=== PATIENT | male | born 1955 | race Caucasian/White ===

== ENCOUNTER 2018-02-02 03:35 | Inpatient (IN) | payer MEDICARE ==
[2018-02-02] MEDS ORDERED: SODIUM CHLORIDE 0.9% 1,000 ML IV STA ×2 (05:50)
[2018-02-02] MEDS ORDERED: VANCOMYCIN IV PER PHARMACY 1 EACH MISC MISCELLANE PRN (05:50)
[2018-02-02] MEDS ORDERED: AMPICILLIN-SULBACTAM 3 GM in SODIUM CHLORIDE 0.9% 100 ML IVPB STA (05:50)
[2018-02-02] MEDS ORDERED: MORPHINE SULFATE 4 MG/ML SYRINGE IV STA (05:50)
[2018-02-02] MEDS ORDERED: RX INFO: IV CONTRAST WAS GIVEN 1 EACH MISC MISCELLANE PRN (05:50)
--- NOTE | 2018-02-02 05:53 | ED ---
General Adult HPI - General Chief complaint: Skin/Abscess/Foreign Body Stated complaint: Cyst Time Seen by Provider: 02/02/18 04:07 Source: patient, RN notes reviewed, old records reviewed Mode of arrival: ambulatory Limitations: no limitations - History of Present Illness Initial comments: This is a 60-year-old male to the ER for evaluation of right buttock pain. Severe right buttock pain, history of diabetes. Patient states symptoms 2 days with no significant drainage. He has had episodic fevers and chills. - Related Data Home Medications Medication Instructions Recorded Confirmed Levothyroxine Sodium [Synthroid] 200 mcg PO DAILY 11/29/14 02/02/18 metFORMIN HCL [Glucophage] 500 mg PO BID 02/02/18 02/02/18 Previous Rx's Medication Instructions Recorded Simvastatin [Zocor] 40 mg PO HS #30 tab 11/30/14 Allergies Allergy/AdvReac Type Severity Reaction Status Date / Time No Known Allergies Allergy Verified 11/29/14 01:50 Review of Systems ROS Statement: Those systems with pertinent positive or pertinent negative responses have been documented in the HPI. ROS Other: All systems not noted in ROS Statement are negative. Past Medical History Past Medical History: Diabetes Mellitus, Thyroid Disorder History of Any Multi-Drug Resistant Organisms: MRSA Date of last positivie culture/infection: 07/18/16 MDRO Source:: ABDOMEN Past Surgical History: Appendectomy, Tonsillectomy Additional Past Surgical History / Comment(s): Thyroidectomy Past Anesthesia/Blood Transfusion Reactions: No Reported Reaction Past Psychological History: No Psychological Hx Reported Smoking Status: Current every day smoker Past Alcohol Use History: Rare Past Drug Use History: None Reported General Exam Limitations: no limitations General appearance: alert, in no apparent distress Head exam: Present: atraumatic, normocephalic, normal inspection Eye exam: Present: normal appearance, PERRL, EOMI. Absent: scleral icterus, conjunctival injection, periorbital swelling ENT exam: Present: normal exam, mucous membranes moist Neck exam: Present: normal inspection. Absent: tenderness, meningismus, lymphadenopathy Respiratory exam: Present: normal lung sounds bilaterally. Absent: respiratory distress, wheezes, rales, rhonchi, stridor Cardiovascular Exam: Present: normal rhythm, tachycardia, normal heart sounds. Absent: systolic murmur, diastolic murmur, rubs, gallop, clicks GI/Abdominal exam: Present: soft, normal bowel sounds. Absent: distended, tenderness, guarding, rebound, rigid Rectal exam: Present: tenderness, other (Significant right buttocks induration, erythema and edema, extending towards perineal area) Extremities exam: Present: normal inspection, full ROM, normal capillary refill. Absent: tenderness, pedal edema, joint swelling, calf tenderness Back exam: Present: normal inspection Neurological exam: Present: alert, oriented X3, CN II-XII intact Psychiatric exam: Present: normal affect, normal mood Skin exam: Present: warm, dry, intact, normal color. Absent: rash Course Vital Signs 02/02/18 03:45 Temperature 97.0 F L Pulse Rate 112 H Respiratory 20 Rate Blood Pressure 129/73 O2 Sat by Pulse 98 Oximetry - Reevaluation(s) Reevaluation #1: 02/02/18 06:23 patient does have adequate pain control at this time, Medical Decision Making - Medical Decision Making 62 male the ER was significant right buttocks abscess, will admit for control of diabetes, IV antibiotics and surgery consultation - Radiology Data Radiology results: report reviewed (CT abdomen and pelvis), image reviewed Disposition Clinical Impression: Abscess of right buttock, Cellulitis of right buttock, Diabetes Disposition: ADMITTED IP TO THIS [facility] Condition: Good
[2018-02-02 06:51] LABS: Basophils % (A) 0 %; Eosinophils # (A) 0.1 k/uL (0-0.7); Eosinophils % (A) 1 %; HCT 39.5 % (39.0-53.0); HGB 13.4 gm/dL (13.0-17.5); Lymphocytes # (A) 2.1 k/uL (1.0-4.8); Lymphocytes % (A) 14 %; MCH 31.8 pg (25.0-35.0); MCV 93.5 fL (80.0-100.0); Mean Platelet Volume 7.9; Monocytes % (A) 6 %; Neutrophils # (A) 12.2 k/uL (1.3-7.7); Neutrophils % (A) 78 %; Platelet Count 212 k/uL (150-450); RBC 4.22 m/uL (4.30-5.90); RDW 12.3 % (11.5-15.5); WBC 15.6 k/uL (3.8-10.6)
[2018-02-02 06:57] LABS: Glucose,Whole Blood 232 mg/dL (75-99)
[2018-02-02] MEDS ORDERED: VANCOMYCIN 1,750 MG in SODIUM CHLORIDE 0.9% 250 ML IVPB ONE (07:00)
[2018-02-02 07:06] LABS: ALT 31 U/L (21-72); AST 15 U/L (17-59); Albumin 3.5 g/dL (3.5-5.0); Alkaline Phosphatase 132 U/L (38-126); Anion Gap 10 mmol/L; Blood Urea Nitrogen 13 mg/dL (9-20); Carbon Dioxide 25 mmol/L (22-30); Chloride 98 mmol/L (98-107); Glucose 243 mg/dL (74-99); Magnesium 1.6 mg/dL (1.6-2.3); Phosphorus 3.4 mg/dL (2.5-4.5); Potassium 4.1 mmol/L (3.5-5.1); Prothrombin Time 10.1 sec (9.0-12.0); Sodium 133 mmol/L (137-145); Total Bilirubin 0.6 mg/dL (0.2-1.3); Total Protein 6.1 g/dL (6.3-8.2)
--- NOTE | 2018-02-02 08:01 | CT ---
EXAMINATION TYPE: CT pelvis w con DATE OF EXAM: 02/02/2018 COMPARISON: CT abdomen and pelvis November 29, 2014 HISTORY: Pain, cyst near rectum. CT DLP: 1284 mGycm Automated exposure control for dose reduction was used. CONTRAST: Performed with IV Contrast, patient injected with 100 mL of Omnipaque 300. FINDINGS: Visualized portion of liver is hypodense consistent with fatty infiltration as seen on prior CT. Central zone calcifications are seen in nonenlarged prostate gland. A few scattered pelvic phlebolith s are present. Bowel shows no suspicious dilatation. Bladder is felt within normal limits. There is mild to moderate fat stranding in the right posterior gluteal fat inferior to rectum and evonne s, along most inferior aspect there is mild skin thickening with perhaps tiny area of focal fluid or more prominent fat stranding inferior medial aspect axial image 68 and coronal image 100 measuring ro ughly 1.0 cm. No significant focal fluid collection or well formed thick walled abscess identified. N o subcutaneous gas is seen. IMPRESSION: INFLAMMATORY CHANGE OR CELLULITIS INVOLVING THE POSTERIOR INFERIOR RIGHT CENTRAL GLUTEAL REGION WITH PERHAPS TINY AREA OF FOCAL FLUID. NO SIGNIFICANT FOCAL FLUID COLLECTION OR ABSCESS.
[2018-02-02] MEDS: MORPHINE SULFATE 4 MG/ML SYRINGE IVP PRN ×4 (08:17→22:52)
[2018-02-02 09:00] VITALS: BMI 37.1
[2018-02-02 11:22] LABS: Glucose,Whole Blood 289 mg/dL (75-99)
[2018-02-02] MEDS: NICOTINE 14MG/24HR PATCH TRANSDERM SCH (11:23)
[2018-02-02] MEDS: AMPICILLIN-SULBACTAM 3 GM in SODIUM CHLORIDE 0.9% 100 ML IVPB SCH ×2 (12:42→20:12)
[2018-02-02] MEDS: INSULIN ASPART 100 UNIT/ML 1 ML 10 ML VIAL SQ SCH ×3 (12:42→22:52)
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
[2018-02-02 16:56] LABS: Glucose,Whole Blood 262 mg/dL (75-99)
[2018-02-02] MEDS: VANCOMYCIN 1,750 MG in SODIUM CHLORIDE 0.9% 250 ML IVPB SCH (17:35)
[2018-02-02 20:00] LABS: Hemoglobin A1C 11.4 % (4.0-6.0)
[2018-02-02] MEDS: SODIUM CHLORIDE 0.9% 1,000 ML IV SCH (20:12)
[2018-02-02] MEDS: ATORVASTATIN 10 MG TAB PO SCH (22:53)
[2018-02-02] MEDS: metFORMIN 500 MG TAB PO SCH (22:53)
[2018-02-03] MEDS: VANCOMYCIN 1,750 MG in SODIUM CHLORIDE 0.9% 250 ML IVPB SCH ×3 (00:07→15:39)
[2018-02-03] MEDS: MORPHINE SULFATE 4 MG/ML SYRINGE IVP PRN ×4 (03:19→22:18)
[2018-02-03] MEDS: AMPICILLIN-SULBACTAM 3 GM in SODIUM CHLORIDE 0.9% 100 ML IVPB SCH ×4 (03:23→17:47)
[2018-02-03] MEDS: LEVOTHYROXINE 100 MCG TAB PO SCH (05:47)
[2018-02-03] MEDS: SODIUM CHLORIDE 0.9% 1,000 ML IV SCH ×3 (05:50→12:10)
[2018-02-03 06:30] LABS: Glucose,Whole Blood 181 mg/dL (75-99)
[2018-02-03 07:23] LABS: Basophils % (A) 0 %; Eosinophils # (A) 0.1 k/uL (0-0.7); Eosinophils % (A) 1 %; HCT 38.7 % (39.0-53.0); HGB 13.1 gm/dL (13.0-17.5); Lymphocytes # (A) 1.9 k/uL (1.0-4.8); Lymphocytes % (A) 14 %; MCH 32.1 pg (25.0-35.0); MCHC 33.9 g/dL (31.0-37.0); MCV 94.7 fL (80.0-100.0); Mean Platelet Volume 7.9; Monocytes # (A) 0.8 k/uL (0-1.0); Monocytes % (A) 6 %; Neutrophils # (A) 10.3 k/uL (1.3-7.7); Neutrophils % (A) 77 %; Platelet Count 217 k/uL (150-450); RBC 4.08 m/uL (4.30-5.90); RDW 12.3 % (11.5-15.5); WBC 13.5 k/uL (3.8-10.6)
[2018-02-03 07:39] LABS: ALT 31 U/L (21-72); AST 13 U/L (17-59); Alkaline Phosphatase 112 U/L (38-126); Anion Gap 8 mmol/L; Blood Urea Nitrogen 9 mg/dL (9-20); Calcium 8.2 mg/dL (8.4-10.2); Carbon Dioxide 26 mmol/L (22-30); Chloride 102 mmol/L (98-107); Glucose 187 mg/dL (74-99); Potassium 4.1 mmol/L (3.5-5.1); Sodium 136 mmol/L (137-145); Total Bilirubin 0.5 mg/dL (0.2-1.3); Total Protein 5.1 g/dL (6.3-8.2)
[2018-02-03] MEDS: INSULIN ASPART 100 UNIT/ML 1 ML 10 ML VIAL SQ SCH ×4 (08:24→22:28)
[2018-02-03] MEDS: metFORMIN 500 MG TAB PO SCH ×2 (09:24→22:17)
[2018-02-03 09:35] LABS: Glucose,Whole Blood 171 mg/dL (75-99)
[2018-02-03] MEDS ORDERED: ONDANSETRON 4 MG/2 ML VIAL IVP ONE (09:37)
[2018-02-03] MEDS ORDERED: HEPARIN SODIUM,PORCINE 5,000 UNIT/ML 1 ML VIAL SQ ONE ×2 (09:51→10:13)
[2018-02-03] MEDS ORDERED: IV FLUID CONTINUATION 1,000 ML IV ONE (09:57)
--- NOTE | 2018-02-03 10:45 | P.OP ---
Date of Procedure: 02/03/18 Preoperative Diagnosis: Right buttock abscess Postoperative Diagnosis: Same Procedure(s) Performed: Incision and drainage of right buttock abscess Anesthesia: SIMONE Surgeon: Katlyn Gimenez Estimated Blood Loss (ml): 5 IV fluids (ml): 400 Pathology: none sent Condition: stable Disposition: PACU Indications for Procedure: Right buttock abscess Operative Findings: Indurated right buttock abscess Description of Procedure: Patient was taken to the operating room and placed in stirrups. This was following induction of general anesthesia. The perianal area and scrotum were prepped and draped in a sterile fashion. A right buttock abscess with a lead point was identified. An incision was made over this area and purulent drainage was obtained. Cultures were obtained. The defect Size Was 14 Cm x 6 Cm. The area was opened using blunt dissection. Following this the wound was well irrigated with 3 L of normal saline. Following this after assured that hemostasis was attained the wound was packed using 1 inch iodoform gauze. The patient tolerated the procedure in stable condition. All instrument and sponge counts were correct at the end of the case.
[2018-02-03] MEDS ORDERED: VANCOMYCIN IV PER PHARMACY 1 EACH MISC MISCELLANE PRN (12:05)
--- NOTE | 2018-02-03 12:08 | P.PN ---
Subjective Progress Note Date: 02/03/18 Patient is in the OR today scheduled for I&D Objective - Vital Signs Vital signs: Vital Signs Temp 97.3 F L 02/03/18 12:00 Pulse 104 H 02/03/18 12:00 Resp 16 02/03/18 12:00 BP 110/67 02/03/18 12:00 Pulse Ox 95 02/03/18 12:00 Intake & Output 02/02/18 02/03/18 02/03/18 18:59 06:59 18:59 Intake Total 800 600 Output Total 5 Balance 800 595 Weight 107.547 kg Intake: IV 800 600 Sodium Chloride 0.9% 1, 800 000 ml @ 100 mls/hr IV . Q10H DREW Rx#:[id number] Output: Estimated Blood Loss 5 Other: Voiding Method Toilet # Voids 2 1 - Labs CBC & Chem 7: 02/03/18 06:53 02/03/18 06:53 Labs: Abnormal Lab Results - Last 24 Hours (Table) 02/02/18 02/02/18 02/03/18 Range/Units 06:35 16:49 06:14 WBC (3.8-10.6) k/uL RBC (4.30-5.90) m/uL Hct (39.0-53.0) % Neutrophils # (1.3-7.7) k/uL Sodium (137-145) mmol/L Creatinine (0.66-1.25) mg/dL Glucose (74-99) mg/dL POC Glucose (mg/dL) 262 H 181 H (75-99) mg/dL Hemoglobin A1c 11.4 H (4.0-6.0) % Calcium (8.4-10.2) mg/dL AST (17-59) U/L Total Protein (6.3-8.2) g/dL Albumin (3.5-5.0) g/dL 02/03/18 02/03/18 02/03/18 Range/Units 06:53 06:53 09:32 WBC 13.5 H (3.8-10.6) k/uL RBC 4.08 L (4.30-5.90) m/uL Hct 38.7 L (39.0-53.0) % Neutrophils # 10.3 H (1.3-7.7) k/uL Sodium 136 L (137-145) mmol/L Creatinine 0.40 L (0.66-1.25) mg/dL Glucose 187 H (74-99) mg/dL POC Glucose (mg/dL) 171 H (75-99) mg/dL Hemoglobin A1c (4.0-6.0) % Calcium 8.2 L (8.4-10.2) mg/dL AST 13 L (17-59) U/L Total Protein 5.1 L (6.3-8.2) g/dL Albumin 3.0 L (3.5-5.0) g/dL Microbiology - Last 24 Hours (Table) 02/02/18 06:35 Blood Culture Gram Stain - Preliminary Blood 02/02/18 06:35 Blood Culture - Final Blood Assessment and Plan Assessment: 1. Right buttock abscess seen and evaluated by general surgery. Scheduled for IND today in the operative room. 2. Bacteremia, with gram-positive cocci. Awaiting final identification and sensitivity. Patient is currently on Unasyn. I would add vancomycin for now. Infectious disease following. 3. Type 2 diabetes mellitus, very poorly controlled. A1c 11.4. I will start the patient on Levemir insulin 10 units twice a day. continue sliding scale insulin. 4. Hypothyroidism, maintained on Synthroid 5. Hyperlipidemia
[2018-02-03] MEDS: NICOTINE 14MG/24HR PATCH TRANSDERM SCH (12:10)
[2018-02-03 12:35] LABS: Glucose,Whole Blood 192 mg/dL (75-99)
[2018-02-03] MEDS ORDERED: VANCOMYCIN TROUGH DUE 1 EACH MISC MISCELLANE ONE (15:00)
[2018-02-03] MEDS: ACETAMINOPHEN TAB 325 MG TAB PO PRN (15:01)
[2018-02-03 17:01] LABS: Glucose,Whole Blood 176 mg/dL (75-99)
[2018-02-03 17:01] LABS: Glucose,Whole Blood 252 mg/dL (75-99)
[2018-02-03 20:40] LABS: Glucose,Whole Blood 298 mg/dL (75-99)
[2018-02-03] MEDS: ATORVASTATIN 10 MG TAB PO SCH (22:17)
[2018-02-03] MEDS: INSULIN DETEMIR 100 UNIT/ML 10 ML VIAL SQ SCH (22:28)
[2018-02-04] MEDS: ACETAMINOPHEN TAB 325 MG TAB PO PRN (00:30)
[2018-02-04] MEDS: VANCOMYCIN 1,750 MG in SODIUM CHLORIDE 0.9% 250 ML IVPB SCH ×3 (00:30→15:48)
[2018-02-04] MEDS: AMPICILLIN-SULBACTAM 3 GM in SODIUM CHLORIDE 0.9% 100 ML IVPB SCH ×4 (05:46→18:33)
[2018-02-04] MEDS: LEVOTHYROXINE 100 MCG TAB PO SCH ×2 (06:11→08:29)
[2018-02-04 07:07] LABS: Glucose,Whole Blood 168 mg/dL (75-99)
[2018-02-04 08:23] LABS: Anion Gap 7 mmol/L; Blood Urea Nitrogen 8 mg/dL (9-20); Calcium 8.2 mg/dL (8.4-10.2); Carbon Dioxide 27 mmol/L (22-30); Chloride 101 mmol/L (98-107); Glucose 142 mg/dL (74-99); Potassium 3.8 mmol/L (3.5-5.1); Sodium 135 mmol/L (137-145)
[2018-02-04] MEDS: MORPHINE SULFATE 4 MG/ML SYRINGE IVP PRN (08:27)
[2018-02-04] MEDS: NICOTINE 14MG/24HR PATCH TRANSDERM SCH (08:29)
[2018-02-04] MEDS: metFORMIN 500 MG TAB PO SCH ×2 (08:29→22:00)
[2018-02-04] MEDS: INSULIN ASPART 100 UNIT/ML 1 ML 10 ML VIAL SQ SCH ×4 (08:30→22:02)
[2018-02-04] MEDS: INSULIN DETEMIR 100 UNIT/ML 10 ML VIAL SQ SCH ×2 (08:30→22:02)
[2018-02-04] MEDS: SODIUM CHLORIDE 0.9% 1,000 ML IV SCH (08:32)
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
[2018-02-04] MEDS: MULTIVITAMINS, THERA 1 EACH TAB PO SCH (11:23)
[2018-02-04 11:31] LABS: Glucose,Whole Blood 194 mg/dL (75-99)
--- NOTE | 2018-02-04 12:37 | P.PN ---
Subjective Patient is doing well today. Blood glucose remained elevated but better compared to yesterday. Objective - Vital Signs Vital signs: Vital Signs Temp 97.2 F L 02/04/18 08:18 Pulse 91 02/04/18 08:18 Resp 17 02/04/18 08:30 BP 125/81 02/04/18 08:18 Pulse Ox 97 02/04/18 08:18 Intake & Output 02/03/18 02/04/18 02/04/18 18:59 06:59 18:59 Intake Total 1500 200 Output Total 205 Balance 1295 200 Weight 107.547 kg Intake: IV 1500 Sodium Chloride 0.9% 1, 800 000 ml @ 100 mls/hr IV . Q10H [facility] Rx#:[id number] Oral 200 Output: Urine 200 Estimated Blood Loss 5 Other: Voiding Method Toilet Toilet Toilet # Voids 3 - Exam General: The patient is awake and alert, in no distress Eye: there is normal conjunctiva bilaterally. Neck: The neck is supple, there is no JVD. Cardiovascular: Normal S1-S2, no S3-S4, no murmurs. Respiratory: Lungs clear to auscultation bilaterally Gastrointestinal: Abdomen is soft, nontender Musculoskeletal: There is no pedal edema. Neurological:. Speech is normal. Skin: Skin is warm and dry - Labs CBC & Chem 7: 02/03/18 06:53 02/04/18 07:32 Labs: Abnormal Lab Results - Last 24 Hours (Table) 02/03/18 02/03/18 02/03/18 Range/Units 06:53 11:10 12:30 Sodium (137-145) mmol/L BUN (9-20) mg/dL Creatinine (0.66-1.25) mg/dL Glucose (74-99) mg/dL POC Glucose (mg/dL) 176 H 192 H (75-99) mg/dL Calcium (8.4-10.2) mg/dL Prealbumin 7.0 L (18.0-42.0) mg/dL 02/03/18 02/03/18 02/04/18 Range/Units 16:58 20:36 07:03 Sodium (137-145) mmol/L BUN (9-20) mg/dL Creatinine (0.66-1.25) mg/dL Glucose (74-99) mg/dL POC Glucose (mg/dL) 252 H 298 H 168 H (75-99) mg/dL Calcium (8.4-10.2) mg/dL Prealbumin (18.0-42.0) mg/dL 02/04/18 02/04/18 Range/Units 07:32 11:28 Sodium 135 L (137-145) mmol/L BUN 8 L (9-20) mg/dL Creatinine 0.50 L (0.66-1.25) mg/dL Glucose 142 H (74-99) mg/dL POC Glucose (mg/dL) 194 H (75-99) mg/dL Calcium 8.2 L (8.4-10.2) mg/dL Prealbumin (18.0-42.0) mg/dL Microbiology - Last 24 Hours (Table) 02/03/18 10:25 Gram Stain - Preliminary Buttock Wound Culture - Preliminary Strep agalactiae - (group b) 02/02/18 06:35 Blood Culture Gram Stain - Preliminary Blood Blood Culture - Preliminary Coagulase Negative Staph 02/03/18 10:25 Anaerobic Culture - Preliminary Buttock 02/02/18 06:35 Blood Culture - Final Blood Assessment and Plan Assessment: 1. Right buttock abscess seen and evaluated by general surgery. Status post I& D in the OR. Wound culture growing strep group B. 2. Bacteremia: Contamination. Culture grew coagulase-negative staph. Repeat blood culture pending. 3. Type 2 diabetes mellitus, very poorly controlled. A1c 11.4. I will start the patient on Levemir insulin. Dose will be increased today to 12 units twice a day. continue sliding scale insulin. 4. Hypothyroidism, maintained on Synthroid 5. Hyperlipidemia - Continue Unasyn and vancomycin for now awaiting repeat blood culture. May switch to oral antibiotic tomorrow - Awaiting nurses educator to teach the patient how to use insulin - Surgery following - Anticipate discharge within the next day or 2.
[2018-02-04] MEDS: HEPARIN SODIUM,PORCINE 5,000 UNIT/ML 1 ML VIAL SQ SCH ×2 (13:10→22:01)
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
[2018-02-04 16:29] LABS: Glucose,Whole Blood 255 mg/dL (75-99)
[2018-02-04] MEDS: MORPHINE ORAL SOLN 10 MG/5 ML CUP PO PRN ×2 (17:49→21:57)
[2018-02-04 21:57] LABS: Glucose,Whole Blood 188 mg/dL (75-99)
[2018-02-04] MEDS: ATORVASTATIN 10 MG TAB PO SCH (22:01)
[2018-02-05] MEDS: VANCOMYCIN 1,750 MG in SODIUM CHLORIDE 0.9% 250 ML IVPB SCH ×2 (00:28→11:07)
[2018-02-05] MEDS: AMPICILLIN-SULBACTAM 3 GM in SODIUM CHLORIDE 0.9% 100 ML IVPB SCH ×3 (00:28→11:07)
[2018-02-05] MEDS: MORPHINE ORAL SOLN 10 MG/5 ML CUP PO PRN ×2 (02:44→06:21)
[2018-02-05] MEDS: ACETAMINOPHEN TAB 325 MG TAB PO PRN (06:24)
[2018-02-05 06:51] LABS: Glucose,Whole Blood 143 mg/dL (75-99)
[2018-02-05] MEDS: NICOTINE 14MG/24HR PATCH TRANSDERM SCH (08:51)
[2018-02-05] MEDS: INSULIN ASPART 100 UNIT/ML 1 ML 10 ML VIAL SQ SCH ×2 (08:52→13:10)
[2018-02-05] MEDS: INSULIN DETEMIR 100 UNIT/ML 10 ML VIAL SQ SCH (08:52)
[2018-02-05] MEDS: HEPARIN SODIUM,PORCINE 5,000 UNIT/ML 1 ML VIAL SQ SCH (08:53)
[2018-02-05] MEDS: MULTIVITAMINS, THERA 1 EACH TAB PO SCH (08:54)
[2018-02-05] MEDS: metFORMIN 500 MG TAB PO SCH (08:54)
[2018-02-05 08:56] LABS: Basophils % (A) 0 %; Eosinophils # (A) 0.3 k/uL (0-0.7); Eosinophils % (A) 3 %; HGB 12.8 gm/dL (13.0-17.5); Lymphocytes # (A) 2.1 k/uL (1.0-4.8); Lymphocytes % (A) 27 %; MCH 31.4 pg (25.0-35.0); MCHC 32.9 g/dL (31.0-37.0); MCV 95.4 fL (80.0-100.0); Mean Platelet Volume 7.5; Monocytes # (A) 0.6 k/uL (0-1.0); Monocytes % (A) 8 %; Neutrophils # (A) 4.8 k/uL (1.3-7.7); Neutrophils % (A) 60 %; Platelet Count 277 k/uL (150-450); RBC 4.08 m/uL (4.30-5.90); RDW 12.2 % (11.5-15.5)
[2018-02-05 09:11] VITALS: BP 142/84; PULSE 90; RESP 16; TEMP 97.7
[2018-02-05 09:20] LABS: Anion Gap 7 mmol/L; Blood Urea Nitrogen 10 mg/dL (9-20); Calcium 8.6 mg/dL (8.4-10.2); Carbon Dioxide 30 mmol/L (22-30); Chloride 102 mmol/L (98-107); Glucose 140 mg/dL (74-99); Potassium 4.1 mmol/L (3.5-5.1); Sodium 139 mmol/L (137-145)
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
[2018-02-05 12:07] LABS: Glucose,Whole Blood 165 mg/dL (75-99)
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
--- NOTE | 2018-02-07 10:21 | CDI ---
Last Revision, October 2017 Documentation Clarification Form Date: 02/07/18 From: Sarah Peter Chata Mota, Sewing Department Supervisor between 8:30 am & 5 pm Gary Admit Date: 02/02/2018 5:53:00 AM Patient Name: Christelle Levine Visit Number: [id number] Discharge Date: 02/05/18 ATTENTION: The Clinical Documentation Specialists (CDI) and [facility] Coding Staff appreciate your assistance in clarifying documentation. Please respond to the clarification below the line at the bottom and electronically sign. The CDI & [facility] Coding staff will review the response and follow-up if needed. Please note: Queries are made part of the Legal Health Record. If you have any questions, please contact the author of this message via ITS. Dr. Maria Fernnada Castaneda The patient has diabetes Type I uncontrolled, as indicated on progress note on & 02/05. A1c is11.4 POC glucose: 232,289,262,181,171,176,192,252,298,168,194,255,188,143,165 Glucose: 243,187,142,140 Per [facility] 2016- query the provider for clarification whether the patient has hyperglycemia or hypoglycemia so that the appropriate code may be reported; uncontrolled diabetes indicates that the patient's blood sugar is not at an acceptable level, because it is either too high or too low. In order to capture the severity of Illness and necessary documentation specificity, please clarify if Type 2 uncontrolled diabetes is: Hyperglycemia Hypoglycemia Other, please specify Unable to Determine Please continue to document in your progress notes and discharge summary in order to capture severity of illness and risk of mortality. Include clinical findings that support your diagnosis. Hyperglycemia secondary to uncontrolled type 2 diabetes MTDD
== END 2018-02-05 16:56 | disposition home or self-care (01) | DRG 580 ==
LOC: EC 03:35 → 3SUR 05:53
PROVIDERS: ADMIT Internal Medicine; ATTEND Internal Medicine
PROC: 0J990ZZ Drainage of Buttock Subcutaneous Tissue and Fascia, Open Approach (ICD-10-PCS; principal; 2018-02-03 11:40)
DX: L02.31 Cutaneous abscess of buttock (principal); T21.32XA Burn of third degree of abdominal wall, initial encounter; E11.65 Type 2 diabetes mellitus with hyperglycemia; L03.317 Cellulitis of buttock; E89.0 Postprocedural hypothyroidism; E78.5 Hyperlipidemia, unspecified; F17.210 Nicotine dependence, cigarettes, uncomplicated; Z79.84 Long term (current) use of oral hypoglycemic drugs; Z79.899 Other long term (current) drug therapy; Z86.14 Personal history of Methicillin resistant Staphylococcus aureus infection; Z88.8 Allergy status to other drugs, medicaments and biological substances; Y27.3XXA Contact with hot household appliance, undetermined intent, initial encounter; X06.2XXA Exposure to ignition of other clothing and apparel, initial encounter; Y92.000 Kitchen of unspecified non-institutional (private) residence as the place of occurrence of the external cause
CPT/HCPCS: 72193; 80048; 80053; 80202; 83036; 83735; 84100; 84134; 85025; 85610; 85730; 87040; 87070; 87075; 87077; 87186; 87205; 96365; 96375; 99285

== ENCOUNTER 2018-02-11 11:21 | Day surgery (SDC) | payer MEDICARE ==
[2018-02-10 08:44] VITALS: BMI 34.4
[~2018-02-11 11:21] MED LIST: LACTATED RINGERS 1,000 ML IV SCH; LIDOCAINE 1% 20 ML VIAL (10MG/ML) FOR IV START INTRADERMA PRN; MORPHINE SULFATE 2 MG/ML SYRINGE IV PRN; ONDANSETRON 4 MG/2 ML VIAL IVP ONE
[2018-02-11 12:20] VITALS: RESP 16; TEMP 97.8
[2018-02-11 12:36] LABS: Glucose,Whole Blood 201 mg/dL (75-99)
[2018-02-11] MEDS ORDERED: INSULIN ASPART 100 UNIT/ML 1 ML 10 ML VIAL SQ ONE (12:49)
[2018-02-11 14:30] LABS: Glucose,Whole Blood 140 mg/dL (75-99)
[2018-02-11] MEDS ORDERED: HEPARIN SODIUM,PORCINE 5,000 UNIT/ML 1 ML VIAL SQ ONE (14:55)
[2018-02-11] MEDS ORDERED: fentaNYL (PF) 50 MCG/ML 2 ML AMP ONE (15:23)
[2018-02-11] MEDS ORDERED: MIDAZOLAM 2 MG/2 ML VIAL ONE (15:23)
[2018-02-11] MEDS ORDERED: LIDOCAINE 1% INJ 10MG/ML (20 ML MDV) SQ ONE (15:39)
[2018-02-11] MEDS ORDERED: SILVER sulfADIAZINE Cream 400 GM 1 APPLIC APPLIC TOPICAL ONE (15:48)
--- NOTE | 2018-02-11 15:51 | P.DS ---
Providers Attending physician: Katlyn Gimenez Primary care physician: Tangela Rodgers Plan - Discharge Summary New Discharge Prescriptions: No Action Levothyroxine Sodium [Synthroid] 200 mcg PO QAM Atorvastatin [Lipitor] 10 mg PO HS Amoxicillin/Potassium Clav [Augmentin 875-125 Tablet] 1 each PO Q12HR #20 tab Ibuprofen [Motrin] 400 mg PO Q6HR PRN 30 Days #30 tab PRN Reason: Pain metFORMIN HCL [Glucophage] 1,000 mg PO BID #60 tab Multivitamins, Thera [Multivitamin (formulary)] 1 each PO DAILY@1200 #30 tab Insulin Glargine [Lantus] 40 unit SQ HS #3 vial SILVER sulfADIAZINE CREAM [Silvadene Cream] 1 applic TOPICAL DAILY Discharge Medication List Levothyroxine Sodium [Synthroid] 200 mcg PO QAM 11/29/14 [History] Atorvastatin [Lipitor] 10 mg PO HS 02/02/18 [History] Amoxicillin/Potassium Clav [Augmentin 875-125 Tablet] 1 each PO Q12HR #20 tab [Rx] Ibuprofen [Motrin] 400 mg PO Q6HR PRN 30 Days #30 tab 02/05/18 [Rx] Insulin Glargine [Lantus] 40 unit SQ HS #3 vial 02/05/18 [Rx] Multivitamins, Thera [Multivitamin (formulary)] 1 each PO DAILY@1200 #30 tab [Rx] metFORMIN HCL [Glucophage] 1,000 mg PO BID #60 tab 02/05/18 [Rx] SILVER sulfADIAZINE CREAM [Silvadene Cream] 1 applic TOPICAL DAILY 02/10/18 [ History] Follow up Appointment(s)/Referral(s): Katlyn Gimenez MD [STAFF PHYSICIAN] - 1 Week Activity/Diet/Wound Care/Special Instructions: do not drive today Discharge Disposition: HOME SELF-CARE
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
[2018-02-11 16:59] VITALS: BP 130/75; PULSE 70
== END 2018-02-11 17:22 | disposition home or self-care (01) ==
LOC: OR 11:21
PROVIDERS: ATTEND Surgery
DX: T21.22XD Burn of second degree of abdominal wall, subsequent encounter (principal); L02.31 Cutaneous abscess of buttock; Z86.14 Personal history of Methicillin resistant Staphylococcus aureus infection; E11.9 Type 2 diabetes mellitus without complications; E89.0 Postprocedural hypothyroidism; Z79.84 Long term (current) use of oral hypoglycemic drugs; Z79.890 Hormone replacement therapy; Z79.899 Other long term (current) drug therapy; Z79.4 Long term (current) use of insulin; Z79.1 Long term (current) use of non-steroidal anti-inflammatories (NSAID); Z88.8 Allergy status to other drugs, medicaments and biological substances; F17.210 Nicotine dependence, cigarettes, uncomplicated
CPT/HCPCS: 16020; J2250; J2405; J2001; J3010

== ENCOUNTER 2018-06-27 05:13 | Inpatient (IN) | payer MEDICAID, OTHER ==
[2018-06-27 06:16] LABS: Basophils % (A) 0 %; Eosinophils # (A) 0.2 k/uL (0-0.7); Eosinophils % (A) 2 %; HCT 46.7 % (39.0-53.0); HGB 15.1 gm/dL (13.0-17.5); Lymphocytes # (A) 1.7 k/uL (1.0-4.8); Lymphocytes % (A) 12 %; MCH 30.6 pg (25.0-35.0); MCHC 32.4 g/dL (31.0-37.0); MCV 94.7 fL (80.0-100.0); Mean Platelet Volume 7.5; Monocytes % (A) 7 %; Neutrophils # (A) 11.3 k/uL (1.3-7.7); Neutrophils % (A) 78 %; Platelet Count 244 k/uL (150-450); RBC 4.94 m/uL (4.30-5.90); RDW 12.5 % (11.5-15.5); WBC 14.4 k/uL (3.8-10.6)
[2018-06-27 06:25] LABS: ALT 29 U/L (21-72); AST 16 U/L (17-59); Albumin 3.6 g/dL (3.5-5.0); Alkaline Phosphatase 106 U/L (38-126); Amylase 71 U/L (30-110); Anion Gap 9 mmol/L; Blood Urea Nitrogen 12 mg/dL (9-20); Calcium 8.8 mg/dL (8.4-10.2); Carbon Dioxide 25 mmol/L (22-30); Chloride 101 mmol/L (98-107); Glucose 243 mg/dL (74-99); Lipase 335 U/L (23-300); Potassium 4.5 mmol/L (3.5-5.1); Sodium 135 mmol/L (137-145); Total Bilirubin 0.7 mg/dL (0.2-1.3)
--- NOTE | 2018-06-27 06:25 | XR ---
EXAMINATION TYPE: XR KUB DATE OF EXAM: 06/27/2018 COMPARISON: 11/29/2014 HISTORY: Right-sided pain TECHNIQUE: 2 views upright FINDINGS: There is no sign of intestinal obstruction or pneumoperitoneum. Fecal pattern is normal. Th ere are no pathologic calcifications over the kidneys. Lung bases are clear. IMPRESSION: Nonacute abdomen. No change.
[2018-06-27] MEDS ORDERED: SODIUM CHLORIDE 0.9% 1,000 ML IV ONE (06:42)
[2018-06-27] MEDS ORDERED: fentaNYL (PF) 50 MCG/ML 2 ML AMP IV STA (06:42)
[2018-06-27 06:56] LABS: Appearance,Urine Clear (Clear); Bilirubin,Urine Negative (Negative); Blood,Urine Negative (Negative); Color,Urine Yellow; Glucose,Urine (UA) 3+ (Negative); Ketones,Urine Negative (Negative); Leukocyte Esterase,Urine Negative (Negative); Nitrite,Urine Negative (Negative); Protein,Urine Negative (Negative); Specific Gravity,Urine 1.015 (1.001-1.035); Urobilinogen,Urine <2.0 mg/dL (<2.0)
--- NOTE | 2018-06-27 07:02 | ED ---
General Adult HPI - General Chief complaint: Abdominal Pain Stated complaint: Abdominal Pain Time Seen by Provider: 06/27/18 05:43 Source: patient Mode of arrival: ambulatory Limitations: no limitations - History of Present Illness Initial comments: Please a 62-year-old male who presents the emergency department today for evaluation of right upper quadrant abdominal pain. Reports the pain began on Saturday but has progressively worsened. Pain is constant sharp in nature. Associated with nausea but no vomiting. Patient last bowel movement was Saturday and was normal in color, caliber and consistency. Patient denies any fevers, chills chest pain or shortness of breath. He reports he feels as though there is something in his right upper quadrant like a blockage or something causing significant pain. Patient has no history of any GI pathology, he has never been seen by gastroenterology. He has not had a colonoscopy. He does still have his gallbladder. He had an appendectomy as a child. He's never had a bowel obstruction or adhesions in the past. Patient denies any alcohol use. He history of acid reflux. He denies any chest pain, palpitations or shortness breath. He denies any diaphoresis or near C3. - Related Data Home Medications Medication Instructions Recorded Confirmed Levothyroxine Sodium [Synthroid] 200 mcg PO QAM 11/29/14 06/27/18 Atorvastatin [Lipitor] 10 mg PO HS 02/02/18 06/27/18 Previous Rx's Medication Instructions Recorded Insulin Glargine [Lantus] 40 unit SQ HS #3 vial 02/05/18 Multivitamins, Thera [Multivitamin 1 each PO DAILY@1200 #30 tab 02/05/18 (formulary)] metFORMIN HCL [Glucophage] 1,000 mg PO BID #60 tab 02/05/18 Allergies Allergy/AdvReac Type Severity Reaction Status Date / Time steroids AdvReac Unknown Uncoded 06/27/18 05:27 Review of Systems ROS Statement: Those systems with pertinent positive or pertinent negative responses have been documented in the HPI. ROS Other: All systems not noted in ROS Statement are negative. Past Medical History Past Medical History: Diabetes Mellitus, Thyroid Disorder History of Any Multi-Drug Resistant Organisms: MRSA Date of last positivie culture/infection: 07/18/16 MDRO Source:: ABDOMEN Past Surgical History: Appendectomy, Tonsillectomy Additional Past Surgical History / Comment(s): Thyroidectomy Past Anesthesia/Blood Transfusion Reactions: No Reported Reaction Past Psychological History: No Psychological Hx Reported Smoking Status: Current some day smoker Past Alcohol Use History: Rare Past Drug Use History: None Reported - Past Family History Father History Unknown: Yes General Exam Limitations: no limitations General appearance: alert Head exam: Present: atraumatic, normocephalic Eye exam: Present: normal appearance, PERRL ENT exam: Present: normal exam Neck exam: Present: normal inspection Respiratory exam: Present: normal lung sounds bilaterally. Absent: respiratory distress Cardiovascular Exam: Present: regular rate, normal rhythm GI/Abdominal exam: Present: soft, distended, tenderness, normal bowel sounds. Absent: guarding, rebound, rigid Rectal exam: Present: deferred Extremities exam: Present: normal inspection Back exam: Present: normal inspection Neurological exam: Present: alert, oriented X3 Psychiatric exam: Present: normal affect, normal mood Skin exam: Present: warm, dry, intact Course Vital Signs 06/27/18 05:24 Temperature 98.5 F Pulse Rate 108 H Respiratory 18 Rate Blood Pressure 167/95 O2 Sat by Pulse 99 Oximetry Medical Decision Making - Medical Decision Making Patient was seen and evaluated, history was obtained from the patient at bedside Patient with right upper quadrant abdominal pain Labs with mildly elevated lipase, patient is not an alcohol drinker. Ultrasound ordered Fentanyl was ordered for pain management,IV fluids infusing Ultrasound reveals a dilated gallbladder, dilated common bile duct, no gallbladder wall thickening, no acute cholecystitis, no stones identified Patient care was discussed with Dr. Hankins who accepts the patient to his service for acute pancreatitis with a consult to general surgery Dr. soriano Patient care was discussed with Dr. soriano who will evaluate the patient Admission orders placed - Lab Data Result diagrams: 06/27/18 06:05 06/27/18 06:05 Lab Results 06/27/18 06/27/18 06/27/18 Range/Units 06:05 06:05 06:47 WBC 14.4 H (3.8-10.6) k/uL RBC 4.94 (4.30-5.90) m/uL Hgb 15.1 (13.0-17.5) gm/dL Hct 46.7 (39.0-53.0) % MCV 94.7 (80.0-100.0) fL MCH 30.6 (25.0-35.0) pg MCHC 32.4 (31.0-37.0) g/dL RDW 12.5 (11.5-15.5) % Plt Count 244 (150-450) k/uL Neutrophils % 78 % Lymphocytes % 12 % Monocytes % 7 % Eosinophils % 2 % Basophils % 0 % Neutrophils # 11.3 H (1.3-7.7) k/uL Lymphocytes # 1.7 (1.0-4.8) k/uL Monocytes # 1.0 (0-1.0) k/uL Eosinophils # 0.2 (0-0.7) k/uL Basophils # 0.0 (0-0.2) k/uL Sodium 135 L (137-145) mmol/L Potassium 4.5 (3.5-5.1) mmol/L Chloride 101 (98-107) mmol/L Carbon Dioxide 25 (22-30) mmol/L Anion Gap 9 mmol/L BUN 12 (9-20) mg/dL Creatinine 0.61 L (0.66-1.25) mg/dL Est GFR (CKD-EPI)AfAm >90 (>60 ml/min/1.73 sqM) Est GFR (CKD-EPI)NonAf >90 (>60 ml/min/1.73 sqM) Glucose 243 H (74-99) mg/dL Calcium 8.8 (8.4-10.2) mg/dL Total Bilirubin 0.7 (0.2-1.3) mg/dL AST 16 L (17-59) U/L ALT 29 (21-72) U/L Alkaline Phosphatase 106 (38-126) U/L Total Protein 6.0 L (6.3-8.2) g/dL Albumin 3.6 (3.5-5.0) g/dL Amylase 71 (30-110) U/L Lipase 335 H (23-300) U/L Urine Color Yellow Urine Appearance Clear (Clear) Urine pH 6.0 (5.0-8.0) Ur Specific [place] 1.015 (1.001-1.035) Urine Protein Negative (Negative) Urine Glucose (UA) 3+ H (Negative) Urine Ketones Negative (Negative) Urine Blood Negative (Negative) Urine Nitrite Negative (Negative) Urine Bilirubin Negative (Negative) Urine Urobilinogen <2.0 (<2.0) mg/dL Ur Leukocyte Esterase Negative (Negative) Disposition Clinical Impression: Pancreatitis Disposition: ADMITTED IP TO THIS HOSP Referrals: Tangela Rodgers MD [Primary Care Provider] - 1-2 days Decision Time: 08:56
--- NOTE | 2018-06-27 08:10 | US ---
EXAMINATION TYPE: US gallbladder DATE OF EXAM: 06/27/2018 COMPARISON: 11/29/2014 CLINICAL HISTORY: Pain. RUQ pain, NPO EXAM MEASUREMENTS: Liver Length: 22.1 cm Gallbladder Wall: 0.2 cm CBD: 0.8 cm CHD 0.7 cm Right Kidney: 12.4 x 6.2 x 5.7 cm Limited exam due to patient body habitus and overlying bowel gas Pancreas: Obscured by bowel gas Liver: Increased attenuation, decreased visualization of vessels suggestive of fatty infiltrate. Lo bular. Limited visualization. Gallbladder: Appears enlarged in size = 12.8 cm Evidence for sonographic Rankin's sign: neg CBD: Dilated CHD: Dilated Right Kidney: Lower pole obscured by overlying bowel gas IMPRESSION: 1. Fatty infiltration liver. 2. Mildly prominent common bile duct is 0.8 cm. Normal less than 0.6 cm for patient's age.
[2018-06-27] MEDS ORDERED: NALOXONE 0.4 MG/ML 1 ML VIAL IV PRN (08:42)
[2018-06-27] MEDS: LACTATED RINGERS 1,000 ML IV SCH ×3 (08:55→21:11)
[2018-06-27] MEDS ORDERED: HYDROmorphone 1 MG/ML 1 ML SYRINGE IVP STA (09:00)
[2018-06-27 10:09] VITALS: BMI 36.9
[2018-06-27 11:31] LABS: Glucose,Whole Blood 183 mg/dL (75-99)
--- NOTE | 2018-06-27 12:19 | P.HPIM ---
<Lynn Lujan E - Last Filed: 06/27/18 14:12> History of Present Illness H&P Date: 06/27/18 Chief Complaint: abdominal pain This patient is being seen examined and evaluated today while covering for Dr. Rodríguez the patient presented this morning to the emergency room with complaints of right upper quadrant abdominal pain that started Saturday evening and has progressively gotten worse over the last few days. He states the pain is sharp and makes him nauseous however he has denied any vomiting. He stated his last bowel movement was on Saturday and that was normal. He did have workup in the emergency room which did reveal an ultrasound of the abdomen that showed fatty infiltration of the liver, a dilated gallbladder, dilated common bile duct, no gallbladder wall thickening or no acute cholecystitis or stones identified. He did have a mildly elevated lipase and denies any alcohol use. The patient was admitted for further evaluation and workup with a surgical consult. Upon examination the patient is resting in bed on room air. He states he has had some significant right upper quadrant pain however the ordered Dilaudid has been helping. He is currently nothing by mouth. He denies any shortness of breath cough or congestion. He denies any constipation or diarrhea. He has not nauseated at this time. He is afebrile all labs and reports have been reviewed. Review of Systems 14 point review of systems was completed and is negative unless noted above in HPI Past Medical History Past Medical History: Diabetes Mellitus, Thyroid Disorder Additional Past Medical History / Comment(s): Hypothyroid History of Any Multi-Drug Resistant Organisms: MRSA Date of last positivie culture/infection: 07/18/16 MDRO Source:: ABDOMEN Past Surgical History: Appendectomy, Tonsillectomy Additional Past Surgical History / Comment(s): Thyroidectomy Past Anesthesia/Blood Transfusion Reactions: No Reported Reaction Past Psychological History: No Psychological Hx Reported Smoking Status: Current some day smoker Past Alcohol Use History: Rare Past Drug Use History: None Reported - Past Family History Father History Unknown: Yes Medications and Allergies Home Medications Medication Instructions Recorded Confirmed Type Levothyroxine Sodium [Synthroid] 200 mcg PO QAM 11/29/14 06/27/18 History Atorvastatin [Lipitor] 10 mg PO HS 02/02/18 06/27/18 History Insulin Glargine [Lantus] 40 unit SQ HS #3 vial 02/05/18 06/27/18 Rx Multivitamins, Thera [Multivitamin 1 each PO DAILY@1200 #30 tab 02/05/18 Rx (formulary)] metFORMIN HCL [Glucophage] 1,000 mg PO BID #60 tab 02/05/18 06/27/18 Rx Allergies Allergy/AdvReac Type Severity Reaction Status Date / Time steroids AdvReac Unknown Uncoded 06/27/18 05:27 Physical Exam Vitals: Vital Signs Temp Pulse Resp BP Pulse Ox 06/27/18 09:45 98.2 F 06/27/18 09:04 92 16 114/62 95 06/27/18 05:24 98.5 F 108 H 18 167/95 99 Intake and Output 06/26/18 06/27/18 06/27/18 22:59 06:59 14:59 Other: Weight 105.687 kg 107 kg GENERAL EXAM: Alert, obese, comfortable in no apparent distress. HEAD: Normocephalic. EYES: Normal reaction of pupils, equal size. NOSE: Clear with pink turbinates. THROAT: No erythema or exudates. NECK: No masses, no JVD. CHEST: No chest wall deformity. LUNGS: Equal air entry with no crackles, wheeze, rhonchi or dullness. CVS: S1 and S2 normal with no audible mumurs, regular rhythm. ABDOMEN: Right upper quadrant pain to palpation. Bowel sounds active. EXTREMITIES: No edema noted, pedal pulses palpable. CENTRAL NERVOUS SYSTEM: No focal deficits, tone is normal in all 4 extremities. Results CBC & Chem 7: 06/27/18 06:05 06/27/18 06:05 Labs: Abnormal Lab Results - Last 24 Hours (Table) 06/27/18 06/27/18 06/27/18 Range/Units 06:05 06:05 06:47 WBC 14.4 H (3.8-10.6) k/uL Neutrophils # 11.3 H (1.3-7.7) k/uL Sodium 135 L (137-145) mmol/L Creatinine 0.61 L (0.66-1.25) mg/dL Glucose 243 H (74-99) mg/dL POC Glucose (mg/dL) (75-99) mg/dL AST 16 L (17-59) U/L Total Protein 6.0 L (6.3-8.2) g/dL Lipase 335 H (23-300) U/L Urine Glucose (UA) 3+ H (Negative) 06/27/18 Range/Units 11:26 WBC (3.8-10.6) k/uL Neutrophils # (1.3-7.7) k/uL Sodium (137-145) mmol/L Creatinine (0.66-1.25) mg/dL Glucose (74-99) mg/dL POC Glucose (mg/dL) 183 H (75-99) mg/dL AST (17-59) U/L Total Protein (6.3-8.2) g/dL Lipase (23-300) U/L Urine Glucose (UA) (Negative) Abdominal x-ray: report reviewed, image reviewed US - abdomen: report reviewed, image reviewed Thrombosis Risk Factor Assmnt - DVT/VTE Prophylaxis DVT/VTE Prophylaxis: Pharmacologic Prophylaxis ordered - Choose All That Apply Any of the Below Risk Factors Present?: Yes Each Factor Represents 1 point: Obesity (BMI >25) Other Risk Factors: No Each Risk Factor Represents 2 Points: Age 61-74 years Other congenital or acquired thrombophilia - If yes, enter type in comment: No Thrombosis Risk Factor Assessment Total Risk Factor Score: 3 Thrombosis Risk Factor Assessment Level: Moderate Risk Assessment and Plan Assessment: Assessment Acute pancreatitis Dilation of the gallbladder Abdominal pain Hypothyroidism Diabetes mellitus Plan Medications have been reviewed and will be continued as ordered. Surgery on consult GI on consult Hold metformin NPO Initiate and encourage incentive spirometer Pain control Monitor CBGs Hold Lantus until patient's diet is advanced, restart once on a diet Continue with pulmonary hygiene, coughing and deep breathing exercises, and supportive care. . GI and DVT prophylaxis. We will continue to monitor labs/results and adjust treatment as necessary. Further recommendations pending. I performed an examination of the patient and discussed their management with the nurse practitioner. I have reviewed the nurse practitioner's note and agree with the documented findings and plan of care. <Christelle Silver - Last Filed: 06/27/18 14:51> Physical Exam Osteopathic Statement: *. No significant issues noted on an osteopathic structural exam other than those noted in the History and Physical/Consult. Vitals: Vital Signs Temp Pulse Resp BP Pulse Ox 06/27/18 09:45 98.2 F 08/03/18 09:04 92 16 114/62 95 06/27/18 05:24 98.5 F 108 H 18 167/95 99 Intake and Output 06/26/18 06/27/18 06/27/18 22:59 06:59 14:59 Other: Weight 105.687 kg 107 kg Results CBC & Chem 7: 06/27/18 06:05 06/27/18 06:05 Labs: Abnormal Lab Results - Last 24 Hours (Table) 06/27/18 06/27/18 06/27/18 Range/Units 06:05 06:05 06:47 WBC 14.4 H (3.8-10.6) k/uL Neutrophils # 11.3 H (1.3-7.7) k/uL Sodium 135 L (137-145) mmol/L Creatinine 0.61 L (0.66-1.25) mg/dL Glucose 243 H (74-99) mg/dL POC Glucose (mg/dL) (75-99) mg/dL AST 16 L (17-59) U/L Total Protein 6.0 L (6.3-8.2) g/dL Lipase 335 H (23-300) U/L Urine Glucose (UA) 3+ H (Negative) 06/27/18 Range/Units 11:26 WBC (3.8-10.6) k/uL Neutrophils # (1.3-7.7) k/uL Sodium (137-145) mmol/L Creatinine (0.66-1.25) mg/dL Glucose (74-99) mg/dL POC Glucose (mg/dL) 183 H (75-99) mg/dL AST (17-59) U/L Total Protein (6.3-8.2) g/dL Lipase (23-300) U/L Urine Glucose (UA) (Negative) Assessment and Plan Assessment: Patient seen and examined. Patient with acute pancreatitis. Complaining of abdominal pain. Etiology of pancreatitis is unclear. Patient denies alcohol abuse. Ultrasound shows fatty infiltration of the liver, mildly prominent common bile duct. Abdominal x-ray shows no acute process. Metformin on hold. Check triglyceride levels. Calcium level was normal. Check hepatitis panel. Consult gastroenterology. ~Christelle Silver DO
--- NOTE | 2018-06-27 12:41 | P.GSCN ---
History of Present Illness Consult date: 06/27/18 History of present illness: This is a 62-year-old male who presented with a chief complaint of right upper quadrant and midepigastric abdominal pain which has been going on since Saturday. The patient states that he has not had a bowel movement since Saturday however he is passing gas. 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 This apparently was a known side effect of the medication. He does not drink any alcohol. There were no gallstones seen on the ultrasound. Since his episode 3 years ago he has not had any pain that is similar to this. He denies any blood in his bowel movement he denies any nausea or vomiting he denies any fevers or chills. He has no other complaints Past Medical History Past Medical History: Diabetes Mellitus, Thyroid Disorder Additional Past Medical History / Comment(s): Hypothyroid History of Any Multi-Drug Resistant Organisms: MRSA Year Discovered:: 07/18/16 MDRO Source:: ABDOMEN Past Surgical History: Appendectomy, Tonsillectomy Additional Past Surgical History / Comment(s): Thyroidectomy Past Anesthesia/Blood Transfusion Reactions: No Reported Reaction Past Psychological History: No Psychological Hx Reported Smoking Status: Current some day smoker Past Alcohol Use History: Rare Past Drug Use History: None Reported - Past Family History Father History Unknown: Yes Medications and Allergies Home Medications Medication Instructions Recorded Confirmed Type Levothyroxine Sodium [Synthroid] 200 mcg PO QAM 11/29/14 06/27/18 History Atorvastatin [Lipitor] 10 mg PO HS 02/02/18 06/27/18 History Insulin Glargine [Lantus] 40 unit SQ HS #3 vial 02/05/18 06/27/18 Rx Multivitamins, Thera [Multivitamin 1 each PO DAILY@1200 #30 tab 02/05/18 Rx (formulary)] metFORMIN HCL [Glucophage] 1,000 mg PO BID #60 tab 02/05/18 06/27/18 Rx Allergies Allergy/AdvReac Type Severity Reaction Status Date / Time steroids AdvReac Unknown Uncoded 06/27/18 05:27 Surgical - Exam Osteopathic Statement: *. No significant issues noted on an osteopathic structural exam other than those noted in the History and Physical/Consult. Vital Signs Temp Pulse Resp BP Pulse Ox 98.5 F 108 H 18 167/95 99 06/27/18 05:24 06/27/18 05:24 06/27/18 05:24 06/27/18 05:24 06/27/18 05:24 - General well developed, well nourished, no distress - Neck trachea midline - Respiratory normal expansion, normal respiratory effort - Abdomen S/mild distention/ TTP RUQ no rebound rigidity or guarding - Neurologic normal coordination, normal sensation - Musculoskeletal normal gait - Psychiatric oriented to time, oriented to person, oriented to place Results - Labs 06/27/18 06:05 06/27/18 06:05 Abnormal Lab Results - Last 24 Hours (Table) 06/27/18 06/27/18 06/27/18 Range/Units 06:05 06:05 06:47 WBC 14.4 H (3.8-10.6) k/uL Neutrophils # 11.3 H (1.3-7.7) k/uL Sodium 135 L (137-145) mmol/L Creatinine 0.61 L (0.66-1.25) mg/dL Glucose 243 H (74-99) mg/dL POC Glucose (mg/dL) (75-99) mg/dL AST 16 L (17-59) U/L Total Protein 6.0 L (6.3-8.2) g/dL Lipase 335 H (23-300) U/L Urine Glucose (UA) 3+ H (Negative) 06/27/18 Range/Units 11:26 WBC (3.8-10.6) k/uL Neutrophils # (1.3-7.7) k/uL Sodium (137-145) mmol/L Creatinine (0.66-1.25) mg/dL Glucose (74-99) mg/dL POC Glucose (mg/dL) 183 H (75-99) mg/dL AST (17-59) U/L Total Protein (6.3-8.2) g/dL Lipase (23-300) U/L Urine Glucose (UA) (Negative) Diabetes panel 06/27/18 Range/Units 06:05 Sodium 135 L (137-145) mmol/L Potassium 4.5 (3.5-5.1) mmol/L Chloride 101 (98-107) mmol/L Carbon Dioxide 25 (22-30) mmol/L BUN 12 (9-20) mg/dL Creatinine 0.61 L (0.66-1.25) mg/dL Glucose 243 H (74-99) mg/dL Calcium 8.8 (8.4-10.2) mg/dL AST 16 L (17-59) U/L ALT 29 (21-72) U/L Alkaline Phosphatase 106 (38-126) U/L Total Protein 6.0 L (6.3-8.2) g/dL Albumin 3.6 (3.5-5.0) g/dL Calcium panel 06/27/18 Range/Units 06:05 Calcium 8.8 (8.4-10.2) mg/dL Albumin 3.6 (3.5-5.0) g/dL Pituitary panel 06/27/18 Range/Units 06:05 Sodium 135 L (137-145) mmol/L Potassium 4.5 (3.5-5.1) mmol/L Chloride 101 (98-107) mmol/L Carbon Dioxide 25 (22-30) mmol/L BUN 12 (9-20) mg/dL Creatinine 0.61 L (0.66-1.25) mg/dL Glucose 243 H (74-99) mg/dL Calcium 8.8 (8.4-10.2) mg/dL Adrenal panel 06/27/18 Range/Units 06:05 Sodium 135 L (137-145) mmol/L Potassium 4.5 (3.5-5.1) mmol/L Chloride 101 (98-107) mmol/L Carbon Dioxide 25 (22-30) mmol/L BUN 12 (9-20) mg/dL Creatinine 0.61 L (0.66-1.25) mg/dL Glucose 243 H (74-99) mg/dL Calcium 8.8 (8.4-10.2) mg/dL Total Bilirubin 0.7 (0.2-1.3) mg/dL AST 16 L (17-59) U/L ALT 29 (21-72) U/L Alkaline Phosphatase 106 (38-126) U/L Total Protein 6.0 L (6.3-8.2) g/dL Albumin 3.6 (3.5-5.0) g/dL - Imaging US - abdomen: report reviewed Assessment and Plan Assessment: Acute pancreatitis Plan: Patient has clinical findings consistent with acute pancreatitis. He has a history of pancreatitis secondary to a medication he was on 3 years ago. This could be an acute on chronic pancreatitis. He does not have any gallstones seen on ultrasound however his common bile duct was slightly dilated. His bilirubins were within normal limits. I recommend drawing a triglyceride level. I also recommend GI evaluation for pancreatitis and dilated common bile duct. There are no plans for acute surgical intervention at this time.
[2018-06-27] MEDS: INSULIN ASPART 100 UNIT/ML 1 ML 10 ML VIAL SQ SCH ×2 (13:20→18:16)
[2018-06-27] MEDS: MULTIVITAMINS, THERA 1 EACH TAB PO SCH (13:22)
[2018-06-27] MEDS: PANTOPRAZOLE 40 MG/10 ML VIAL IVP SCH (13:22)
[2018-06-27] MEDS: HYDROmorphone 1 MG/ML 1 ML SYRINGE IVP PRN ×3 (13:23→21:04)
[2018-06-27 17:16] LABS: Hemoglobin A1C 9.2 % (4.0-6.0)
[2018-06-27] MEDS: HEPARIN SODIUM,PORCINE 5,000 UNIT/ML 1 ML VIAL SQ SCH (17:40)
[2018-06-27 18:00] LABS: Glucose,Whole Blood 211 mg/dL (75-99)
[2018-06-27] MEDS: INSULIN DETEMIR 100 UNIT/ML 10 ML VIAL SQ SCH (21:03)
[2018-06-27] MEDS: ATORVASTATIN 10 MG TAB PO SCH (21:03)
[2018-06-27 21:31] LABS: Hepatitis A Antibody IgM Non-Reactive (Non-Reactive); Hepatitis B Core IgM Non-Reactive (Non-Reactive)
[2018-06-28 00:19] LABS: Glucose,Whole Blood 197 mg/dL (75-99)
[2018-06-28] MEDS: HEPARIN SODIUM,PORCINE 5,000 UNIT/ML 1 ML VIAL SQ SCH ×3 (00:32→13:23)
[2018-06-28] MEDS: INSULIN ASPART 100 UNIT/ML 1 ML 10 ML VIAL SQ SCH ×4 (00:34→17:38)
[2018-06-28] MEDS: HYDROmorphone 1 MG/ML 1 ML SYRINGE IVP PRN ×5 (00:35→21:29)
[2018-06-28] MEDS: LACTATED RINGERS 1,000 ML IV SCH ×3 (04:37→17:41)
[2018-06-28 05:54] LABS: Glucose,Whole Blood 140 mg/dL (75-99)
[2018-06-28] MEDS: LEVOTHYROXINE 100 MCG TAB PO SCH (06:46)
[2018-06-28 08:12] LABS: Basophils % (A) 0 %; Eosinophils # (A) 0.1 k/uL (0-0.7); Eosinophils % (A) 1 %; HCT 40.9 % (39.0-53.0); HGB 13.4 gm/dL (13.0-17.5); Lymphocytes # (A) 0.9 k/uL (1.0-4.8); Lymphocytes % (A) 11 %; MCH 31.4 pg (25.0-35.0); MCHC 32.8 g/dL (31.0-37.0); MCV 95.6 fL (80.0-100.0); Mean Platelet Volume 7.2; Monocytes # (A) 0.6 k/uL (0-1.0); Monocytes % (A) 7 %; Neutrophils # (A) 6.7 k/uL (1.3-7.7); Neutrophils % (A) 80 %; Platelet Count 201 k/uL (150-450); RBC 4.28 m/uL (4.30-5.90); RDW 12.4 % (11.5-15.5); WBC 8.4 k/uL (3.8-10.6)
[2018-06-28] MEDS: PANTOPRAZOLE 40 MG/10 ML VIAL IVP SCH (08:21)
[2018-06-28 08:28] LABS: ALT 121 U/L (21-72); AST 114 U/L (17-59); Alkaline Phosphatase 262 U/L (38-126); Amylase <30 U/L (30-110); Anion Gap 7 mmol/L; Blood Urea Nitrogen 8 mg/dL (9-20); Calcium 8.6 mg/dL (8.4-10.2); Carbon Dioxide 26 mmol/L (22-30); Chloride 100 mmol/L (98-107); Glucose 120 mg/dL (74-99); Lipase 18 U/L (23-300); Potassium 4.1 mmol/L (3.5-5.1); Sodium 133 mmol/L (137-145); Total Bilirubin 4.7 mg/dL (0.2-1.3); Total Protein 5.3 g/dL (6.3-8.2)
[2018-06-28] MEDS: IOPAMIDOL-300 CONTRAST 30 ML VIAL (ORAL USE) PO PRN ×2 (11:45→12:50)
[2018-06-28] MEDS: MULTIVITAMINS, THERA 1 EACH TAB PO SCH (12:26)
--- NOTE | 2018-06-28 13:03 | CONS ---
CONSULTATION DATE OF DICTATION: 06/28/2018 REASON FOR CONSULTATION: Elevated LFTs and abdominal pain. HISTORY OF PRESENT ILLNESS: The patient is a 62-year-old pleasant white male who was admitted to the hospital with acute onset of severe epigastric and right upper quadrant abdominal pain that started on Saturday. The pain continued to progressively get worse, associated with some nausea and vomiting and and hence he came into the emergency room and was subsequently admitted to the hospital for further evaluation. When he first came into the emergency room, he was noted to have normal serum transaminases and he had mild elevation of lipase. He did have an ultrasound of the abdomen done that showed evidence of fatty infiltration of the liver with a dilated gallbladder, slightly dilated CBD, but no gallstones noted. However, today his serum transaminases have significantly increased with bilirubin up to 4. The patient denies any history of chronic liver disease. No history of alcohol abuse. He feels that the pain is somewhat improving. He reports no nausea or vomiting. No fever, chills, night sweats. He had a similar episode about 3 years ago and was told that it happened because of steroids that he was taking for a skin rash that caused acute pancreatitis. He does not recall any further details. PAST MEDICAL HISTORY: Significant for diabetes mellitus, hypothyroidism. PAST SURGICAL HISTORY: Appendectomy and tonsillectomy. MEDICATIONS AT HOME: 1. Synthroid. 2. Lipitor. 3. Lantus. 4. Multivitamin. 5. Glucophage. ALLERGIES: STEROIDS. SOCIAL HISTORY: Chronic smoker. Remote history of alcohol use, but no alcohol for 40 years. FAMILY HISTORY: Unremarkable. REVIEW OF SYSTEMS: CARDIOPULMONARY: No chest pain, shortness of breath. GENITOURINARY: No dysuria, hematuria. MUSCULOSKELETAL: Unremarkable. SKIN: Unremarkable. ENDOCRINE: Unremarkable. PSYCHIATRY: Unremarkable. NEUROLOGY: Unremarkable. ENT/VISION: Unremarkable. CONSTITUTIONAL: No recent weight loss. No fever, chills, night sweats. LABS: Labs done at the time of admission to the hospital: CBC WBC of 14.3, hemoglobin normal. Platelets are normal. AST, ALT, total bilirubin and alkaline phosphatase yesterday were within normal limits and lipase was 335. Today lipase is normal at 18. Total bilirubin is up to 4.7. AST is 114. ALT is 121, alkaline phosphatase is 262. CBC with differential count is within normal limits. IMPRESSION: This is a patient who presented to the hospital with severe epigastric pain for the last 5 days' duration. At presentation yesterday his serum transaminases were within normal limits. Today serum transaminases increased to the 100 range and bilirubin up to 4.7. He had an ultrasound of the gallbladder done yesterday that showed no evidence of gallstones but a dilated CBD and dilated gallbladder. With elevated serum transaminases, possibility of CBD stone cannot be completely excluded despite the gallbladder not showing any gallstones. RECOMMENDATIONS: 1. Will proceed with an MRCP today. 2. He can continue with a clear liquid diet. 3. Based on MRCP results, will consider if he needs any further endoscopic intervention. At this time we will follow the patient closely during his hospital stay. Thank you for this consultation. CESIA / SHILO: [id number] /
[2018-06-28 13:06] LABS: Glucose,Whole Blood 160 mg/dL (75-99)
--- NOTE | 2018-06-28 13:15 | PN ---
PROGRESS NOTE DATE OF SERVICE: June 28, 2018. He has less abdominal pain and is doing better overall. He is due for an MRCP today. On physical examination blood pressure is 100/59, respiratory rate of 18, pulse rate of 118, temperature 99 degrees Fahrenheit. HEENT is unremarkable. Chest is clear. Cardiovascular system is S1, S2. Abdomen is soft. There is no pedal edema. White count is 8.4, hemoglobin of 13.4. Sodium 133, potassium 4.1, chloride 100, bicarb 26, BUN 8, creatinine of 0.64. IMPRESSION: At this time is: 1. Acute pancreatitis. 2. Possible gallstone. 3. Diabetes mellitus, type 2, insulin requiring. 4. Possible gallbladder disease. At this point in time, follow recommendations of Gastroenterology and surgery. Keep sugars under control. Increases activity level. Await MRCP results and decide on further treatment. MMODL / IJN: [id number] /
--- NOTE | 2018-06-28 14:32 | CT ---
EXAMINATION TYPE: CT abdomen pelvis w con DATE OF EXAM: 06/28/2018 REFERENCE: Previous study dated 02/02/2018. HISTORY: pancreatitis, elevated liver enzymes HISTORY: pancreatitis CT DLP: 2324.5 mGy Automated exposure control for dose reduction was used. TECHNIQUE: Helical acquisition through the abdomen and pelvis was obtained following the oral ingesti on of with Oral Contrast and following intravenous administration of 100 mL of Isovue 300. The data w as reformatted in axial, coronal and sagittal projections. FINDINGS: There is minimal dependent atelectasis in the dependent portions of both lungs. There is n o pleural or pericardial fluid. The heart is not enlarged. There is a partial eventration of the right hemidiaphragm. Within the abdomen, the liver is prominent measuring 21 cm. The liver is fatty infiltrated. The splee n is unremarkable. There is thickening of the gallbladder wall with surrounding inflammatory change.. No definite cholelithiasis is identified. Both adrenal glands are normal. Both kidneys demonstrate function and appear morphologically normal. The pancreas is unremarkable without inflammatory change or pseudocyst formation. There is no significant retroperitoneal, iliac or inguinal adenopathy. The bladder is unremarkable. There is no significant diverticular change and I do not see radiographic evidence of diverticulitis. The appendix is not visualized. Small bowel loops are of normal caliber. There is no free fluid and no free air. There is trace disease disease in the lower dorsal and upper lumbar spines. There is facet arthropath y in the lower lumbar facets. There is a bilateral spondylolysis at L5 without a significant spondylo listhesis of L5 on S1. IMPRESSION: 1. THICKENING OF THE GALLBLADDER WALL WITH SURROUNDING INFLAMMATION MAY REPRESENT ACUTE, ACALCULOUS C HOLECYSTITIS. 2. HEPATOMEGALY AND FATTY INFILTRATION OF THE LIVER. 3. 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
--- NOTE | 2018-06-28 15:45 | P.PN ---
Subjective Progress Note Date: 06/28/18 Patient denies any pain. He did have elevation of his total bilirubin today. He denies any nausea vomiting no other complaints Objective - Vital Signs Vital signs: Vital Signs Temp 98.3 F 06/28/18 15:18 Pulse 86 06/28/18 15:21 Resp 18 06/28/18 15:21 BP 109/67 06/28/18 15:18 Pulse Ox 97 06/28/18 15:18 Intake & Output 06/27/18 06/28/18 06/28/18 18:59 06:59 18:59 Weight 107 kg 107 kg Other: Voiding Method Toilet Toilet # Voids 1 2 3 # Bowel Movements 0 0 - Respiratory Details: Nonlabored - Gastrointestinal Gastrointestinal Comment(s): Soft nondistended mild tenderness palpation - Psychiatric Psychiatric: Present: A&O x's 3 - Labs CBC & Chem 7: 06/28/18 07:36 06/28/18 07:36 Labs: Abnormal Lab Results - Last 24 Hours (Table) 06/27/18 06/27/18 06/28/18 Range/Units 06:05 17:48 00:17 RBC (4.30-5.90) m/uL Lymphocytes # (1.0-4.8) k/uL Sodium (137-145) mmol/L BUN (9-20) mg/dL Creatinine (0.66-1.25) mg/dL Glucose (74-99) mg/dL POC Glucose (mg/dL) 211 H 197 H (75-99) mg/dL Hemoglobin A1c 9.2 H (4.0-6.0) % Total Bilirubin (0.2-1.3) mg/dL AST (17-59) U/L ALT (21-72) U/L Alkaline Phosphatase (38-126) U/L Total Protein (6.3-8.2) g/dL Albumin (3.5-5.0) g/dL Amylase (30-110) U/L Lipase (23-300) U/L 06/28/18 06/28/18 06/28/18 Range/Units 05:52 07:36 07:36 RBC 4.28 L (4.30-5.90) m/uL Lymphocytes # 0.9 L (1.0-4.8) k/uL Sodium 133 L (137-145) mmol/L BUN 8 L (9-20) mg/dL Creatinine 0.64 L (0.66-1.25) mg/dL Glucose 120 H (74-99) mg/dL POC Glucose (mg/dL) 140 H (75-99) mg/dL Hemoglobin A1c (4.0-6.0) % Total Bilirubin 4.7 H (0.2-1.3) mg/dL AST 114 H (17-59) U/L ALT 121 H (21-72) U/L Alkaline Phosphatase 262 H (38-126) U/L Total Protein 5.3 L (6.3-8.2) g/dL Albumin 3.0 L (3.5-5.0) g/dL Amylase <30 L (30-110) U/L Lipase 18 L (23-300) U/L 06/28/18 Range/Units 12:39 RBC (4.30-5.90) m/uL Lymphocytes # (1.0-4.8) k/uL Sodium (137-145) mmol/L BUN (9-20) mg/dL Creatinine (0.66-1.25) mg/dL Glucose (74-99) mg/dL POC Glucose (mg/dL) 160 H (75-99) mg/dL Hemoglobin A1c (4.0-6.0) % Total Bilirubin (0.2-1.3) mg/dL AST (17-59) U/L ALT (21-72) U/L Alkaline Phosphatase (38-126) U/L Total Protein (6.3-8.2) g/dL Albumin (3.5-5.0) g/dL Amylase (30-110) U/L Lipase (23-300) U/L Assessment and Plan Assessment: Pancreatitis, suspect obstructive jaundice Plan: Continue nothing by mouth follow-up final GI recommendations MRCP versus ERCP. We'll continue to follow
[2018-06-28 17:09] LABS: Glucose,Whole Blood 140 mg/dL (75-99)
[2018-06-28 21:05] LABS: Glucose,Whole Blood 157 mg/dL (75-99)
[2018-06-28] MEDS: INSULIN DETEMIR 100 UNIT/ML 10 ML VIAL SQ SCH (21:29)
[2018-06-28] MEDS: ATORVASTATIN 10 MG TAB PO SCH (21:29)
[2018-06-29] MEDS: HEPARIN SODIUM,PORCINE 5,000 UNIT/ML 1 ML VIAL SQ SCH ×3 (00:03→13:44)
[2018-06-29 00:25] LABS: Glucose,Whole Blood 171 mg/dL (75-99)
[2018-06-29] MEDS: HYDROmorphone 1 MG/ML 1 ML SYRINGE IVP PRN ×8 (00:25→22:04)
[2018-06-29] MEDS: LACTATED RINGERS 1,000 ML IV SCH ×4 (01:49→21:04)
[2018-06-29] MEDS: INSULIN ASPART 100 UNIT/ML 1 ML 10 ML VIAL SQ SCH ×5 (01:51→21:04)
[2018-06-29 06:19] LABS: Glucose,Whole Blood 115 mg/dL (75-99)
[2018-06-29] MEDS: LEVOTHYROXINE 100 MCG TAB PO SCH (06:27)
[2018-06-29] MEDS: PANTOPRAZOLE 40 MG/10 ML VIAL IVP SCH (07:52)
[2018-06-29] MEDS: MULTIVITAMINS, THERA 1 EACH TAB PO SCH (07:52)
[2018-06-29 08:18] LABS: Basophils % (A) 0 %; Eosinophils # (A) 0.2 k/uL (0-0.7); Eosinophils % (A) 2 %; HCT 44.1 % (39.0-53.0); HGB 14.3 gm/dL (13.0-17.5); Lymphocytes # (A) 1.1 k/uL (1.0-4.8); Lymphocytes % (A) 11 %; MCH 31.6 pg (25.0-35.0); MCHC 32.4 g/dL (31.0-37.0); MCV 97.4 fL (80.0-100.0); Mean Platelet Volume 7.1; Monocytes # (A) 0.7 k/uL (0-1.0); Monocytes % (A) 7 %; Neutrophils # (A) 7.9 k/uL (1.3-7.7); Neutrophils % (A) 79 %; Platelet Count 253 k/uL (150-450); RBC 4.53 m/uL (4.30-5.90); RDW 12.4 % (11.5-15.5)
[2018-06-29 08:27] LABS: ALT 115 U/L (21-72); AST 92 U/L (17-59); Albumin 3.6 g/dL (3.5-5.0); Alkaline Phosphatase 386 U/L (38-126); Anion Gap 10 mmol/L; Blood Urea Nitrogen 8 mg/dL (9-20); Carbon Dioxide 30 mmol/L (22-30); Chloride 96 mmol/L (98-107); Glucose 98 mg/dL (74-99); Sodium 136 mmol/L (137-145); Total Bilirubin 5.1 mg/dL (0.2-1.3); Total Protein 6.2 g/dL (6.3-8.2)
--- NOTE | 2018-06-29 09:47 | P.PN ---
Subjective Progress Note Date: 06/29/18 Patient states his pain is improved. He did have elevation of his total bilirubin today. He denies any nausea vomiting no other complaints Objective - Vital Signs Vital signs: Vital Signs Temp 97.4 F L 06/29/18 05:30 Pulse 83 06/29/18 05:30 Resp 16 06/29/18 05:30 BP 126/69 06/29/18 05:30 Pulse Ox 95 06/29/18 05:30 Intake & Output 06/28/18 06/29/18 06/29/18 18:59 06:59 18:59 Intake Total 1200 150 Balance 1200 150 Weight 107 kg 107 kg Intake: Intake, IV Titration 1200 Amount Lactated Ringers 1,000 ml 1200 @ 150 mls/hr IV .Q6H40M [facility] Rx#:[id number] Oral 150 Other: Voiding Method Toilet Toilet # Voids 3 2 # Bowel Movements 0 0 - Respiratory Details: Nonlabored - Cardiovascular Rhythm: regular - Gastrointestinal Gastrointestinal Comment(s): Soft mild distention mild tenderness palpation midepigastric - Psychiatric Psychiatric: Present: A&O x's 3 - Labs CBC & Chem 7: 06/29/18 07:25 06/29/18 07:25 Labs: Abnormal Lab Results - Last 24 Hours (Table) 06/27/18 06/28/18 06/28/18 Range/Units 06:05 12:39 17:02 Neutrophils # (1.3-7.7) k/uL Sodium (137-145) mmol/L Chloride (98-107) mmol/L BUN (9-20) mg/dL Creatinine (0.66-1.25) mg/dL POC Glucose (mg/dL) 160 H 140 H (75-99) mg/dL Hemoglobin A1c 9.2 H (4.0-6.0) % Total Bilirubin (0.2-1.3) mg/dL AST (17-59) U/L ALT (21-72) U/L Alkaline Phosphatase (38-126) U/L Total Protein (6.3-8.2) g/dL 06/28/18 06/29/18 06/29/18 Range/Units 20:53 00:21 06:17 Neutrophils # (1.3-7.7) k/uL Sodium (137-145) mmol/L Chloride (98-107) mmol/L BUN (9-20) mg/dL Creatinine (0.66-1.25) mg/dL POC Glucose (mg/dL) 157 H 171 H 115 H (75-99) mg/dL Hemoglobin A1c (4.0-6.0) % Total Bilirubin (0.2-1.3) mg/dL AST (17-59) U/L ALT (21-72) U/L Alkaline Phosphatase (38-126) U/L Total Protein (6.3-8.2) g/dL 06/29/18 06/29/18 Range/Units 07:25 07:25 Neutrophils # 7.9 H (1.3-7.7) k/uL Sodium 136 L (137-145) mmol/L Chloride 96 L (98-107) mmol/L BUN 8 L (9-20) mg/dL Creatinine 0.63 L (0.66-1.25) mg/dL POC Glucose (mg/dL) (75-99) mg/dL Hemoglobin A1c (4.0-6.0) % Total Bilirubin 5.1 H (0.2-1.3) mg/dL AST 92 H (17-59) U/L ALT 115 H (21-72) U/L Alkaline Phosphatase 386 H (38-126) U/L Total Protein 6.2 L (6.3-8.2) g/dL Assessment and Plan Assessment: Pancreatitis, suspect obstructive jaundice Plan: follow-up final GI recommendations MRCP versus ERCP. We'll continue to follow
[2018-06-29 11:55] LABS: Glucose,Whole Blood 101 mg/dL (75-99)
--- NOTE | 2018-06-29 15:54 | P.PN ---
Subjective Progress Note Date: 06/29/18 Principal diagnosis: Acute gallstone pancreatitis, abdominal pain, hypothyroidism, type 2 diabetes mellitus, morbid obesity 06/29/2018, patient seen eval examined during the rounds clinically slightly better still have abdominal discomfort and pain, general surgery has been following this patient, patient has been on clear liquid diet, labs reviewed white cell count is trending down is stable CBC renal functions are stable, general surgery and GI services are following at this point of patient is being considered for MRCP versus ERCP, this patient seen eval reexamined while covering for Dr. Rodríguez This patient is being seen examined and evaluated today while covering for Dr. Rodríguez the patient presented this morning to the emergency room with complaints of right upper quadrant abdominal pain that started Saturday evening and has progressively gotten worse over the last few days. He states the pain is sharp and makes him nauseous however he has denied any vomiting. He stated his last bowel movement was on Saturday and that was normal. He did have workup in the emergency room which did reveal an ultrasound of the abdomen that showed fatty infiltration of the liver, a dilated gallbladder, dilated common bile duct, no gallbladder wall thickening or no acute cholecystitis or stones identified. He did have a mildly elevated lipase and denies any alcohol use. The patient was admitted for further evaluation and workup with a surgical consult. Upon examination the patient is resting in bed on room air. He states he has had some significant right upper quadrant pain however the ordered Dilaudid has been helping. He is currently nothing by mouth. He denies any shortness of breath cough or congestion. He denies any constipation or diarrhea. He has not nauseated at this time. He is afebrile all labs and reports have been reviewed. Objective - Vital Signs Vital signs: Vital Signs Temp 98.1 F 06/29/18 15:00 Pulse 83 06/29/18 15:13 Resp 16 06/29/18 15:13 BP 151/87 06/29/18 15:00 Pulse Ox 97 06/29/18 15:00 Intake & Output 06/28/18 06/29/18 06/29/18 18:59 06:59 18:59 Intake Total 1200 470 Balance 1200 470 Weight 107 kg 107 kg Intake: Intake, IV Titration 1200 Amount Lactated Ringers 1,000 ml 1200 @ 150 mls/hr IV .Q6H40M [facility] Rx#:[id number] Oral 470 Other: Voiding Method Toilet Toilet # Voids 3 2 2 # Bowel Movements 0 0 - Exam GENERAL EXAM: Alert, obese, comfortable in no apparent distress. HEAD: Normocephalic. EYES: Normal reaction of pupils, equal size. NOSE: Clear with pink turbinates. THROAT: No erythema or exudates. NECK: No masses, no JVD. CHEST: No chest wall deformity. LUNGS: Equal air entry with no crackles, wheeze, rhonchi or dullness. CVS: S1 and S2 normal with no audible mumurs, regular rhythm. ABDOMEN: Right upper quadrant pain to palpation. Bowel sounds active. EXTREMITIES: No edema noted, pedal pulses palpable. CENTRAL NERVOUS SYSTEM: No focal deficits, tone is normal in all 4 extremities. - Labs CBC & Chem 7: 06/29/18 07:25 06/29/18 07:25 Labs: Abnormal Lab Results - Last 24 Hours (Table) 06/28/18 06/28/18 06/29/18 Range/Units 17:02 20:53 00:21 Neutrophils # (1.3-7.7) k/uL Sodium (137-145) mmol/L Chloride (98-107) mmol/L BUN (9-20) mg/dL Creatinine (0.66-1.25) mg/dL POC Glucose (mg/dL) 140 H 157 H 171 H (75-99) mg/dL Total Bilirubin (0.2-1.3) mg/dL AST (17-59) U/L ALT (21-72) U/L Alkaline Phosphatase (38-126) U/L Total Protein (6.3-8.2) g/dL 06/29/18 06/29/18 06/29/18 Range/Units 06:17 07:25 07:25 Neutrophils # 7.9 H (1.3-7.7) k/uL Sodium 136 L (137-145) mmol/L Chloride 96 L (98-107) mmol/L BUN 8 L (9-20) mg/dL Creatinine 0.63 L (0.66-1.25) mg/dL POC Glucose (mg/dL) 115 H (75-99) mg/dL Total Bilirubin 5.1 H (0.2-1.3) mg/dL AST 92 H (17-59) U/L ALT 115 H (21-72) U/L Alkaline Phosphatase 386 H (38-126) U/L Total Protein 6.2 L (6.3-8.2) g/dL 06/29/18 Range/Units 11:44 Neutrophils # (1.3-7.7) k/uL Sodium (137-145) mmol/L Chloride (98-107) mmol/L BUN (9-20) mg/dL Creatinine (0.66-1.25) mg/dL POC Glucose (mg/dL) 101 H (75-99) mg/dL Total Bilirubin (0.2-1.3) mg/dL AST (17-59) U/L ALT (21-72) U/L Alkaline Phosphatase (38-126) U/L Total Protein (6.3-8.2) g/dL Assessment and Plan Assessment: Acute pancreatitis Dilation of the gallbladder Abdominal pain Hypothyroidism Diabetes mellitus Plan: Gentle rehydration Pain management Maintain on clear liquid diet Awaiting further recommendation from GI services Time with Patient: Greater than 30
[2018-06-29 17:24] LABS: Glucose,Whole Blood 105 mg/dL (75-99)
[2018-06-29 20:53] LABS: Glucose,Whole Blood 118 mg/dL (75-99)
[2018-06-29] MEDS: ATORVASTATIN 10 MG TAB PO SCH (21:04)
[2018-06-29] MEDS: INSULIN DETEMIR 100 UNIT/ML 10 ML VIAL SQ SCH (21:04)
--- NOTE | 2018-06-29 21:25 | PN ---
PROGRESS NOTE DATE OF SERVICE: June 29, 2018 Patient is a 62-year-old pleasant white male admitted to the hospital with epigastric and right upper quadrant abdominal pain for the last 4-5 days duration. At the time of admission to the hospital, serum transaminases was completely within normal limits. However, yesterday, T bilirubin went up to 4.6 with elevated ALT and AST. He did have ultrasound of the abdomen that did not show any gallstones. Subsequently, he was scheduled for an MRCP but the patient could not fit in the machine and hence the procedure had to be canceled. He subsequently underwent CT of the abdomen and pelvis that once again showed normal-appearing gallbladder with no evidence of biliary ductal dilation or gallstones. In the meantime, his repeat labs today show worsening T bilirubin up to 5.2. He still continues to complain of epigastric discomfort. No nausea, no vomiting. No fever, chills, or night sweats. PHYSICAL EXAMINATION: He appears comfortable. No apparent distress. VITAL SIGNS: Stable. Blood pressure is 126/69, pulse rate 83, temperature 97.4. HEENT Examination: Unremarkable. Conjunctivae pink. Sclerae anicteric. Oral cavity no lesions. Neck no jugular venous distention or lymph node enlargement. Chest was clear to auscultation. HEART: Regular rate and rhythm. ABDOMEN: Soft. Bowel sounds are positive. Mild tenderness in the epigastric area. Extremities: No pedal edema. Skin no rashes. NEUROLOGIC: Alert and oriented x3. No focal deficits. LABS: From today, WBC 10, hemoglobin 14.3, platelets are normal. T-bilirubin is 5.1, AST 92, ALT 115, alkaline phosphatase 386, and T bilirubin 5.1. IMPRESSION: This is a patient who presents with epigastric right upper quadrant abdominal pain for the last 5 days duration. At presentation, serum transaminases was within normal limits. However, yesterday and today the T-bilirubin has been increasing up to 5.1 with elevated serum transaminases in the range of 100. With this clinical presentation, CBD . Surprisingly, CT of the abdomen and pelvis as well as ultrasound did not show any evidence of biliary ductal dilatation or gallstones. RECOMMENDATION: I had a lengthy discussion with the patient regarding further workup. Since for possible biliary obstruction/CBD stone, we will proceed with an ERCP. I discussed with him risks, benefits, and complications including pancreatitis bleeding, perforation, etc and he is agreeable to it. We will obtain labs tomorrow and if he continues to progressively get worse, we will proceed with an ERCP. Thank you for this consultation. MMODL / IJN: [id number] /
[2018-06-29] MEDS ORDERED: ACETAMINOPHEN TAB 500 MG TAB PO PRN (23:22)
[2018-06-30] MEDS: HYDROmorphone 1 MG/ML 1 ML SYRINGE IVP PRN ×5 (01:13→22:38)
[2018-06-30] MEDS: LACTATED RINGERS 1,000 ML IV SCH ×3 (04:24→15:45)
[2018-06-30 07:26] LABS: Glucose,Whole Blood 121 mg/dL (75-99)
[2018-06-30] MEDS: LEVOTHYROXINE 100 MCG TAB PO SCH (08:10)
[2018-06-30] MEDS: PANTOPRAZOLE 40 MG/10 ML VIAL IVP SCH (08:10)
[2018-06-30] MEDS: INSULIN ASPART 100 UNIT/ML 1 ML 10 ML VIAL SQ SCH ×4 (08:10→22:34)
[2018-06-30] MEDS: HEPARIN SODIUM,PORCINE 5,000 UNIT/ML 1 ML VIAL SQ SCH ×3 (08:10→15:45)
[2018-06-30 08:18] LABS: Basophils % (A) 0 %; Eosinophils # (A) 0.2 k/uL (0-0.7); Eosinophils % (A) 2 %; HCT 41.8 % (39.0-53.0); HGB 13.5 gm/dL (13.0-17.5); Lymphocytes # (A) 1.3 k/uL (1.0-4.8); Lymphocytes % (A) 17 %; MCH 31.2 pg (25.0-35.0); MCHC 32.4 g/dL (31.0-37.0); MCV 96.3 fL (80.0-100.0); Mean Platelet Volume 7.2; Monocytes # (A) 0.6 k/uL (0-1.0); Monocytes % (A) 8 %; Neutrophils % (A) 69 %; Platelet Count 233 k/uL (150-450); RBC 4.34 m/uL (4.30-5.90); RDW 12.6 % (11.5-15.5); WBC 7.3 k/uL (3.8-10.6)
[2018-06-30 08:26] LABS: ALT 102 U/L (21-72); AST 80 U/L (17-59); Albumin 3.2 g/dL (3.5-5.0); Alkaline Phosphatase 562 U/L (38-126); Anion Gap 10 mmol/L; Blood Urea Nitrogen 7 mg/dL (9-20); Calcium 8.7 mg/dL (8.4-10.2); Carbon Dioxide 28 mmol/L (22-30); Chloride 98 mmol/L (98-107); Glucose 117 mg/dL (74-99); Potassium 3.8 mmol/L (3.5-5.1); Sodium 136 mmol/L (137-145); Total Bilirubin 7.1 mg/dL (0.2-1.3); Total Protein 5.7 g/dL (6.3-8.2)
[2018-06-30] MEDS ORDERED: LEVOFLOXACIN 500MG-D5W PMX 500 MG in DEXTROSE/WATER 1 100ML.BAG IVPB STA (09:31)
[2018-06-30] MEDS: MULTIVITAMINS, THERA 1 EACH TAB PO SCH (11:58)
[2018-06-30] MEDS ORDERED: INDOMETHACIN 50MG SUPPOSITORY RECTAL ONE (12:00)
[2018-06-30 12:12] LABS: Glucose,Whole Blood 137 mg/dL (75-99)
[2018-06-30] MEDS ORDERED: PROPOFOL 10 MG/ML 20 ML VIAL IV ONE (12:36)
[2018-06-30] MEDS ORDERED: LIDOCAINE 1% INJ 10MG/ML (20 ML MDV) ONE (12:36)
[2018-06-30] MEDS ORDERED: IV FLUID CONTINUATION 900 ML IV ONE (12:38)
[2018-06-30] MEDS ORDERED: IOPAMIDOL-300 50ML BTL MISCELLANE ONE ×2 (12:53)
--- NOTE | 2018-06-30 13:15 | P.PCN ---
Date of Procedure: 06/30/18 Procedure(s) Performed: Brief history: Patient is a 62-year-old white male, admitted hospital with epigastric and right upper quadrant abdominal pain for the last 5 days duration. At the time of admission to hospital serum transaminases are within normal limits. The following day AST and AST reveals elevated in the range of 102 bili up to 4.2. Today the bili is up to 7.2 with alk phos is of 500 and mild elevation of serum transaminases in the 100s. MRCP could not be performed because of patient's obesity. Ultrasound abdomen as well as CT of abdomen did not show any evidence of gallstones or biliary ductal dilation. But because of the clinical presentation and possibility of a common bile duct stones he scheduled for an ERCP today . Procedure performed: ERCP with biliary sphincterotomy and balloon extraction Preoperative diagnoses: epigastric right upper quadrant abdominal pain of one- week duration and elevated LFTs/jaundice IV sedation per anesthesia: Procedure: After informed consent was obtained from the patient and after the risks benefits and complications including bleeding perforation and pancreatitis explained in detail the patient was brought into the endoscopy unit. The patient was placed in prone position and IV conscious sedation was administered by anesthesia under continuous monitoring. The Olympus side-viewing duodenoscope was then inserted into the mouth and esophagus intubated without any difficulty. The scope was gradually advanced into the stomach and duodenum. The major papilla was identified without any difficulty. the ampullary orifice appeared slightly inflamed. Initial cannulation resulted in the base of The pancreatic duct that appeared normal. Subsequent cannulation resultedin addition the common bile duct that appeared normal in diameter with faint filling defect identified in the mid CBD. There is no intrahepatic biliary ductal dilation seen. The cystic duct was patent. At this time a biliary sphincterotomy was performed after the catheter was exchanged over the guidewire with the sphincterotome at 12 o'clock position and was extended to 1 m. Following this a 9 mm balloon was passed over the guidewire into the proximal CBD, inflated and gently withdrawn and significant amount of thick mucoid material was seen exiting the ampulla. No stones noted. This maneuver was repeated 3 more times and more mucoid material was seen exiting the ampulla. At this time an occlusion cholangiogram was performed in the common bile duct appeared normal with no filling defects. The procedure was terminated. Patient tolerated the procedure well. Impression: Normal pancreatic duct Normal-appearing common bile duct with a faint linear filling defect in the mid CBD, status post biliary sphincterotomy and balloon extraction as described above with significant amount of thick mucoid material exiting the ampulla. No stones seen. Recommendations: The findings of this examination were discussed with the patient as well as a family read at this time we'll repeat labs in the morning. Will discuss with . Clear liquid diet today.
--- NOTE | 2018-06-30 16:02 | FL ---
EXAMINATION TYPE: FL ERCP DATE OF EXAM: 06/30/2018 FLUOROSCOPY Fluoroscopy time of 1 minute 32 seconds was used during ERCP. 2 image/s document/s the procedure.
[2018-06-30 17:17] LABS: Glucose,Whole Blood 163 mg/dL (75-99)
--- NOTE | 2018-06-30 18:15 | P.PN ---
Subjective Progress Note Date: 06/30/18 Patient states his pain is improved since ERCP. He denies any nausea vomiting no other complaints Objective - Vital Signs Vital signs: Vital Signs Temp 97.6 F 06/30/18 15:00 Pulse 66 06/30/18 15:00 Resp 18 06/30/18 16:00 BP 129/78 06/30/18 15:00 Pulse Ox 97 06/30/18 15:00 Intake & Output 06/29/18 06/30/18 06/30/18 18:59 06:59 18:59 Intake Total 570 600 300 Balance 570 600 300 Weight 107 kg Intake: IV 300 Oral 570 600 Other: Voiding Method Toilet Toilet # Voids 2 1 1 # Bowel Movements 0 - Constitutional General appearance: Present: cooperative - Respiratory Details: nonlabored - Cardiovascular Rhythm: regular - Gastrointestinal Gastrointestinal Comment(s): s/nt - Psychiatric Psychiatric: Present: A&O x's 3 - Labs CBC & Chem 7: 06/30/18 07:49 06/30/18 07:49 Labs: Abnormal Lab Results - Last 24 Hours (Table) 06/29/18 06/30/18 06/30/18 Range/Units 20:48 07:08 07:49 Sodium 136 L (137-145) mmol/L BUN 7 L (9-20) mg/dL Creatinine 0.60 L (0.66-1.25) mg/dL Glucose 117 H (74-99) mg/dL POC Glucose (mg/dL) 118 H 121 H (75-99) mg/dL Total Bilirubin 7.1 H (0.2-1.3) mg/dL AST 80 H (17-59) U/L ALT 102 H (21-72) U/L Alkaline Phosphatase 562 H (38-126) U/L Total Protein 5.7 L (6.3-8.2) g/dL Albumin 3.2 L (3.5-5.0) g/dL 06/30/18 06/30/18 Range/Units 12:08 17:15 Sodium (137-145) mmol/L BUN (9-20) mg/dL Creatinine (0.66-1.25) mg/dL Glucose (74-99) mg/dL POC Glucose (mg/dL) 137 H 163 H (75-99) mg/dL Total Bilirubin (0.2-1.3) mg/dL AST (17-59) U/L ALT (21-72) U/L Alkaline Phosphatase (38-126) U/L Total Protein (6.3-8.2) g/dL Albumin (3.5-5.0) g/dL Assessment and Plan Assessment: Pancreatitis Plan: Patient does not appear to have gallstones and did not have stones in duct. No plans for acute surgical intervention at this time, follow up GI recs
--- NOTE | 2018-06-30 19:01 | P.PN ---
Subjective Progress Note Date: 06/30/18 Principal diagnosis: Acute pancreatitis, abdominal pain, hypothyroidism, type 2 diabetes mellitus, morbid obesity 06/30/2018, patient seen eval examined during the rounds after ERCP he tolerated very well prior to the procedure patient has a significant worsening of the pain requiring escalation of dose of Dilaudid however he feels significantly improved post ERCP and treated into detail of the procedure refer to the note of Dr. Rodgers, patient had the normal common bile duct with the 10 anemia filling defect of mid common biliary duct is status post biliary sphincterectomy and mucoid extraction 06/29/2018, patient seen eval examined during the rounds clinically slightly better still have abdominal discomfort and pain, general surgery has been following this patient, patient has been on clear liquid diet, labs reviewed white cell count is trending down is stable CBC renal functions are stable, general surgery and GI services are following at this point of patient is being considered for MRCP versus ERCP, this patient seen eval reexamined while covering for Dr. Rodríguez This patient is being seen examined and evaluated today while covering for Dr. Rodríguez the patient presented this morning to the emergency room with complaints of right upper quadrant abdominal pain that started Saturday evening and has progressively gotten worse over the last few days. He states the pain is sharp and makes him nauseous however he has denied any vomiting. He stated his last bowel movement was on Saturday and that was normal. He did have workup in the emergency room which did reveal an ultrasound of the abdomen that showed fatty infiltration of the liver, a dilated gallbladder, dilated common bile duct, no gallbladder wall thickening or no acute cholecystitis or stones identified. He did have a mildly elevated lipase and denies any alcohol use. The patient was admitted for further evaluation and workup with a surgical consult. Upon examination the patient is resting in bed on room air. He states he has had some significant right upper quadrant pain however the ordered Dilaudid has been helping. He is currently nothing by mouth. He denies any shortness of breath cough or congestion. He denies any constipation or diarrhea. He has not nauseated at this time. He is afebrile all labs and reports have been reviewed. Objective - Vital Signs Vital signs: Vital Signs Temp 97.6 F 06/30/18 15:00 Pulse 66 06/30/18 15:00 Resp 18 06/30/18 16:00 BP 129/78 06/30/18 15:00 Pulse Ox 97 06/30/18 15:00 Intake & Output 06/29/18 06/30/18 06/30/18 18:59 06:59 18:59 Intake Total 570 600 300 Balance 570 600 300 Weight 107 kg Intake: IV 300 Oral 570 600 Other: Voiding Method Toilet Toilet # Voids 2 1 1 # Bowel Movements 0 - Exam GENERAL EXAM: Alert, obese, comfortable in no apparent distress. HEAD: Normocephalic. EYES: Normal reaction of pupils, equal size. NOSE: Clear with pink turbinates. THROAT: No erythema or exudates. NECK: No masses, no JVD. CHEST: No chest wall deformity. LUNGS: Equal air entry with no crackles, wheeze, rhonchi or dullness. CVS: S1 and S2 normal with no audible mumurs, regular rhythm. ABDOMEN: Right upper quadrant pain to palpation. Bowel sounds active. EXTREMITIES: No edema noted, pedal pulses palpable. CENTRAL NERVOUS SYSTEM: No focal deficits, tone is normal in all 4 extremities. - Labs CBC & Chem 7: 06/30/18 07:49 06/30/18 07:49 Labs: Abnormal Lab Results - Last 24 Hours (Table) 06/29/18 06/30/18 06/30/18 Range/Units 20:48 07:08 07:49 Sodium 136 L (137-145) mmol/L BUN 7 L (9-20) mg/dL Creatinine 0.60 L (0.66-1.25) mg/dL Glucose 117 H (74-99) mg/dL POC Glucose (mg/dL) 118 H 121 H (75-99) mg/dL Total Bilirubin 7.1 H (0.2-1.3) mg/dL AST 80 H (17-59) U/L ALT 102 H (21-72) U/L Alkaline Phosphatase 562 H (38-126) U/L Total Protein 5.7 L (6.3-8.2) g/dL Albumin 3.2 L (3.5-5.0) g/dL 06/30/18 06/30/18 Range/Units 12:08 17:15 Sodium (137-145) mmol/L BUN (9-20) mg/dL Creatinine (0.66-1.25) mg/dL Glucose (74-99) mg/dL POC Glucose (mg/dL) 137 H 163 H (75-99) mg/dL Total Bilirubin (0.2-1.3) mg/dL AST (17-59) U/L ALT (21-72) U/L Alkaline Phosphatase (38-126) U/L Total Protein (6.3-8.2) g/dL Albumin (3.5-5.0) g/dL Assessment and Plan Assessment: Acute pancreatitis Dilation of the gallbladder Mucoid impacted bile duct causing pancreatitis and dilated gallbladder status post ERCP Abdominal pain Hypothyroidism Diabetes mellitus Severe morbid obesity Plan: Gentle rehydration Pain management Maintain on clear liquid diet, advance as tolerated ERCP findings reviewed with the patient if remains stable possible discharge tomorrow Time with Patient: Greater than 30
[2018-06-30 22:29] LABS: Glucose,Whole Blood 181 mg/dL (75-99)
[2018-06-30] MEDS: ATORVASTATIN 10 MG TAB PO SCH (22:33)
[2018-06-30] MEDS: INSULIN DETEMIR 100 UNIT/ML 10 ML VIAL SQ SCH (22:34)
[2018-07-01] MEDS: HEPARIN SODIUM,PORCINE 5,000 UNIT/ML 1 ML VIAL SQ SCH ×3 (00:31→16:20)
[2018-07-01] MEDS: LACTATED RINGERS 1,000 ML IV SCH ×3 (03:38→13:08)
[2018-07-01] MEDS: HYDROmorphone 1 MG/ML 1 ML SYRINGE IVP PRN ×3 (05:28→16:21)
[2018-07-01 06:30] VITALS: TEMP 97.7
[2018-07-01] MEDS: LEVOTHYROXINE 100 MCG TAB PO SCH (07:01)
[2018-07-01 07:43] LABS: Glucose,Whole Blood 188 mg/dL (75-99)
[2018-07-01 07:48] LABS: Basophils % (A) 0 %; Eosinophils # (A) 0.2 k/uL (0-0.7); Eosinophils % (A) 3 %; HCT 39.7 % (39.0-53.0); HGB 12.6 gm/dL (13.0-17.5); Lymphocytes % (A) 14 %; MCH 30.7 pg (25.0-35.0); MCHC 31.7 g/dL (31.0-37.0); MCV 96.7 fL (80.0-100.0); Mean Platelet Volume 7.3; Monocytes # (A) 0.6 k/uL (0-1.0); Monocytes % (A) 8 %; Neutrophils # (A) 5.4 k/uL (1.3-7.7); Neutrophils % (A) 72 %; Platelet Count 244 k/uL (150-450); RBC 4.11 m/uL (4.30-5.90); RDW 12.8 % (11.5-15.5); WBC 7.4 k/uL (3.8-10.6)
[2018-07-01 08:07] LABS: ALT 98 U/L (21-72); AST 86 U/L (17-59); Albumin 2.7 g/dL (3.5-5.0); Alkaline Phosphatase 672 U/L (38-126); Anion Gap 7 mmol/L; Blood Urea Nitrogen 8 mg/dL (9-20); Carbon Dioxide 29 mmol/L (22-30); Chloride 102 mmol/L (98-107); Glucose 201 mg/dL (74-99); Potassium 3.8 mmol/L (3.5-5.1); Sodium 138 mmol/L (137-145); Total Bilirubin 5.3 mg/dL (0.2-1.3)
[2018-07-01] MEDS: PANTOPRAZOLE 40 MG/10 ML VIAL IVP SCH (08:20)
[2018-07-01] MEDS: INSULIN ASPART 100 UNIT/ML 1 ML 10 ML VIAL SQ SCH ×3 (08:21→18:06)
[2018-07-01] MEDS: MULTIVITAMINS, THERA 1 EACH TAB PO SCH (08:21)
--- NOTE | 2018-07-01 09:50 | P.PN ---
Subjective Progress Note Date: 07/01/18 Principal diagnosis: abdominal pain jaundice elevated liver enzymes S/P ERCP failnt linear defect mid CBD s/p sphincterotomy. LFTs improve. Minimal abdominal pain. Reports "starving" requesting diet advancement. T bili 5.3. Afebrile. Objective - Vital Signs Vital signs: Vital Signs Temp 97.7 F 07/01/18 06:00 Pulse 74 07/01/18 06:00 Resp 20 07/01/18 06:00 BP 120/78 07/01/18 06:00 Pulse Ox 96 07/01/18 06:00 Intake & Output 06/30/18 07/01/18 07/01/18 18:59 06:59 18:59 Intake Total 300 300 Balance 300 300 Intake: IV 300 Oral 300 Other: Voiding Method Toilet # Voids 1 1 - Exam General appearance: The patient is alert, oriented, in no acute distress. Jaundice. HET: Head is normocephalic and atraumatic. Pupils are equal and reactive. Sclerae icterus. Oropharynx is clear without lesions. Neck: Supple without lymphadenopathy. Trachea midline. Heart: S1 S2. Regular rate and rhythm. Lungs: No crackles or wheezes are heard. Abdomen: Soft, mild tenderness midepigastrium, nondistended with bowel sounds. No peritoneal signs. No palpable organomegaly or masses. Extremities: Normal skin color and turgor. No cyanosis, rash, ulceration, clubbing, or edema. Radial and pedal pulses are 2/4 bilaterally. Neurological: No focal deficits. Strength and sensation are grossly intact. - Labs CBC & Chem 7: 07/01/18 07:25 07/01/18 07:25 Labs: Abnormal Lab Results - Last 24 Hours (Table) 06/30/18 06/30/18 06/30/18 Range/Units 12:08 17:15 22:10 RBC (4.30-5.90) m/uL Hgb (13.0-17.5) gm/dL BUN (9-20) mg/dL Creatinine (0.66-1.25) mg/dL Glucose (74-99) mg/dL POC Glucose (mg/dL) 137 H 163 H 181 H (75-99) mg/dL Calcium (8.4-10.2) mg/dL Total Bilirubin (0.2-1.3) mg/dL AST (17-59) U/L ALT (21-72) U/L Alkaline Phosphatase (38-126) U/L Total Protein (6.3-8.2) g/dL Albumin (3.5-5.0) g/dL 07/01/18 07/01/18 07/01/18 Range/Units 07:25 07:25 07:40 RBC 4.11 L (4.30-5.90) m/uL Hgb 12.6 L (13.0-17.5) gm/dL BUN 8 L (9-20) mg/dL Creatinine 0.57 L (0.66-1.25) mg/dL Glucose 201 H (74-99) mg/dL POC Glucose (mg/dL) 188 H (75-99) mg/dL Calcium 8.0 L (8.4-10.2) mg/dL Total Bilirubin 5.3 H (0.2-1.3) mg/dL AST 86 H (17-59) U/L ALT 98 H (21-72) U/L Alkaline Phosphatase 672 H (38-126) U/L Total Protein 5.0 L (6.3-8.2) g/dL Albumin 2.7 L (3.5-5.0) g/dL Assessment and Plan (1) Epigastric abdominal pain Narrative/Plan: Status post ERCP LFTs improving Current Visit: Yes Status: Acute Code(s): R10.13 - EPIGASTRIC PAIN SNOMED Code(s): 78637561 (2) Jaundice Current Visit: Yes Status: Acute Code(s): R17 - UNSPECIFIED JAUNDICE SNOMED Code(s): 74568551 (3) Elevated liver enzymes Narrative/Plan: Underlying chronic liver disease cannot be excluded Current Visit: Yes Status: Acute Code(s): R74.8 - ABNORMAL LEVELS OF OTHER SERUM ENZYMES SNOMED Code(s): 476908543 Plan: 1. Will advance diet. Serologic workup for chronic liver disease requested. RTO 1-2 weeks. Discharge per medicine and consultants. CBC CMP 3-5 days. Assessment and plan a care discussed with Dr. Duval
[2018-07-01 12:33] LABS: INR 1.1 (<1.2); Prothrombin Time 10.6 sec (9.0-12.0)
[2018-07-01 12:55] LABS: Glucose,Whole Blood 167 mg/dL (75-99)
--- NOTE | 2018-07-01 15:12 | P.DS ---
Providers Date of admission: 06/28/18 11:31 Expected date of discharge: 07/01/18 Attending physician: Anita Rodríguez Consults: 06/27/18 08:42 Consult Physician Stat Consulting Provider: Panchito Romero Consult Reason/Comments: dilated gallbladder and ducts, pancreatitis Do you want consulting provider notified?: Already Contacted 06/27/18 14:11 Consult Physician Routine Consulting Provider: Flora Duffy Consult Reason/Comments: pancreatitis Do you want consulting provider notified?: Yes Primary care physician: Tangela Rodgers Hospital Course: Discharge diagnosis Acute pancreatitis Dilation of the gallbladder Mucoid impacted bile duct causing pancreatitis and dilated gallbladder status post ERCP. ERCP findings reviewed with the patient if remains stable possible discharge tomorrow Abdominal pain Hypothyroidism Diabetes mellitus Severe morbid obesity Hospital course Acute pancreatitis, abdominal pain, hypothyroidism, type 2 diabetes mellitus, morbid obesity This patient is being seen examined and evaluated today while covering for Dr. Rodríguez the patient presented this morning to the emergency room with complaints of right upper quadrant abdominal pain that started Saturday evening and has progressively gotten worse over the last few days. He states the pain is sharp and makes him nauseous however he has denied any vomiting. He stated his last bowel movement was on Saturday and that was normal. He did have workup in the emergency room which did reveal an ultrasound of the abdomen that showed fatty infiltration of the liver, a dilated gallbladder, dilated common bile duct, no gallbladder wall thickening or no acute cholecystitis or stones identified. He did have a mildly elevated lipase and denies any alcohol use. The patient was admitted for further evaluation and workup with a surgical consult. Upon examination the patient is resting in bed on room air. He states he has had some significant right upper quadrant pain however the ordered Dilaudid has been helping. He is currently nothing by mouth. He denies any shortness of breath cough or congestion. He denies any constipation or diarrhea. He has not nauseated at this time. He is afebrile all labs and reports have been reviewed. 06/29/2018, patient seen eval examined during the rounds clinically slightly better still have abdominal discomfort and pain, general surgery has been following this patient, patient has been on clear liquid diet, labs reviewed white cell count is trending down is stable CBC renal functions are stable, general surgery and GI services are following at this point of patient is being considered for MRCP versus ERCP, this patient seen eval reexamined while covering for Dr. Rodríguez 06/30/2018, patient seen eval examined during the rounds after ERCP he tolerated very well prior to the procedure patient has a significant worsening of the pain requiring escalation of dose of Dilaudid however he feels significantly improved post ERCP and treated into detail of the procedure refer to the note of Dr. Rodgers, patient had the normal common bile duct with the 10 anemia filling defect of mid common biliary duct is status post biliary sphincterectomy and mucoid extraction On 07/01/2018 discussed case with GI services patient has been cleared for discharge from GI consult. Surgical consult also cleared patient for discharge. Patient will follow up outpatient with Dr. Russell. Patient to follow- up closely with primary care provider Dr. rodgers. home medication of Lipitor and metformin will be discontinued upon discharge and patient to follow-up with primary care provider. Discussed case with Asuncion ROSAS per GI services. Her GI patient will be discharged home on Levaquin 500 mg daily for 5 days. Prescription will be given to patient for repeat comp and metabolic panel in 3 days I performed an examination of the patient and discussed their management with the Nurse Practitioner. I have reviewed the Nurse Practitioner's notes and agree with the documented findings and plan of care Patient Condition at Discharge: Stable Plan - Discharge Summary Discharge Rx Participant: Yes New Discharge Prescriptions: Continue Levothyroxine Sodium [Synthroid] 200 mcg PO QAM Multivitamins, Thera [Multivitamin (formulary)] 1 each PO DAILY@1200 #30 tab Insulin Glargine [Lantus] 40 unit SQ HS #3 vial Discontinued Atorvastatin [Lipitor] 10 mg PO HS metFORMIN HCL [Glucophage] 1,000 mg PO BID #60 tab Discharge Medication List Levothyroxine Sodium [Synthroid] 200 mcg PO QAM 11/29/14 [History] Insulin Glargine [Lantus] 40 unit SQ HS #3 vial 02/05/18 [Rx] Multivitamins, Thera [Multivitamin (formulary)] 1 each PO DAILY@1200 #30 tab [Rx] Follow up Appointment(s)/Referral(s): Tangela Rodgers MD [Primary Care Provider] - 07/08/18 11:30 am Flora Duffy MD [STAFF PHYSICIAN] - 07/10/18 2:45 pm Ambulatory/Diagnostic Orders: Comprehensive Metabolic Panel [LAB.AMB] Time Frame: 3 Days, Location: None Selected Patient Instructions/Handouts: Pancreatitis (DC) Activity/Diet/Wound Care/Special Instructions: Diet low fat consistent carb Activity as tolerated Discharge Disposition: HOME SELF-CARE
[2018-07-01 16:23] VITALS: BP 107/57; PULSE 75; RESP 18
[2018-07-01 17:20] LABS: Glucose,Whole Blood 252 mg/dL (75-99)
[2018-07-01 20:25] LABS: Alpha Fetoprotein, Tumor Mkr 2.7 ng/mL (0.0-7.9)
[2018-07-02 01:38] LABS: Iron Saturation 25.84 (15.00-50.00)
[2018-07-02] MEDS ORDERED: PANTOPRAZOLE 40 MG TABLET PO SCH (07:30)
[2018-07-02 12:14] LABS: Ceruloplasmin 38.9 mg/dL (20.0-60.0)
== END 2018-07-01 18:15 | disposition home or self-care (01) | DRG 440 ==
LOC: EC 05:13 → 4MS4W 08:57 → OBSVTOIN 06-28 11:31
PROVIDERS: ADMIT Internal Medicine; ATTEND Internal Medicine
PROC: 0F798ZZ Dilation of Common Bile Duct, Via Natural or Artificial Opening Endoscopic (ICD-10-PCS; principal; 2018-06-30 08:30)
DX: K85.10 Biliary acute pancreatitis without necrosis or infection (principal); E11.9 Type 2 diabetes mellitus without complications; E66.01 Morbid (severe) obesity due to excess calories; E89.0 Postprocedural hypothyroidism; Z68.36 Body mass index [BMI] 36.0-36.9, adult; F17.200 Nicotine dependence, unspecified, uncomplicated; K21.9 Gastro-esophageal reflux disease without esophagitis; K76.0 Fatty (change of) liver, not elsewhere classified; Z79.4 Long term (current) use of insulin; Z86.14 Personal history of Methicillin resistant Staphylococcus aureus infection; Z79.890 Hormone replacement therapy; Z79.899 Other long term (current) drug therapy; Z88.8 Allergy status to other drugs, medicaments and biological substances
CPT/HCPCS: 36415; 43262; 74018; 74177; 74330; 76705; 80053; 80074; 81003; 82103; 82105; 82150; 82390; 82465; 82728; 83036; 83516; 83540; 83550; 83690; 84165; 84478; 85025; 85610; 86038; 96361; 96374; 96375; 99285

== ENCOUNTER 2018-07-22 07:44 | Day surgery (SDC) | payer MEDICAID ==
[2018-07-22 08:38] LABS: Mean Platelet Volume 7.2; Platelet Count 246 k/uL (150-450)
[2018-07-22 08:44] LABS: Prothrombin Time 9.6 sec (9.0-12.0)
[2018-07-22 08:46] VITALS: RESP 16; TEMP 97.8
[2018-07-22] MEDS ORDERED: HYDROmorphone 1 MG/ML 1 ML SYRINGE IVP STA (09:13)
[2018-07-22] MEDS ORDERED: INSULIN DETEMIR 100 UNIT/ML 10 ML VIAL SQ STA (09:58)
[2018-07-22 12:03] LABS: Glucose,Whole Blood 247 mg/dL (75-99)
--- NOTE | 2018-07-22 13:08 | US ---
EXAMINATION TYPE: US biopsy liver DATE OF EXAM: 07/22/2018 HISTORY: Elevated liver function tests. PROCEDURE: Maximal barrier technique was utilized. After informed consent, the skin overlying a suit able path to the liver was localized using ultrasound, the skin was prepped and draped. Ultrasound w as utilized with sterile technique. Lidocaine was used for local anesthesia. A skin kiera made with a scalpel. Under direct ultrasound guidance, an 18-gauge needle was advanced into the left lobe of th e liver and core biopsy obtained. Hemostasis was achieved. There was no immediate complication and patient remained in stable condition. Specimen submitted in formalin to Pathology. IMPRESSION: STATUS POST ULTRASOUND GUIDED CORE BIOPSY OF THE LEFT LOBE OF THE LIVER, PATHOLOGY TING De La Cruz PERFORMED BY THE UNDERSIGNED.
[2018-07-22 13:22] VITALS: BP 126/71; PULSE 97
== END 2018-07-22 14:01 ==
LOC: RADPROMAIN 07:44 → PROCWHC3 14:01
PROVIDERS: ATTEND Internal Medicine Gastroenterology
DX: K75.81 Nonalcoholic steatohepatitis (NASH) (principal); I10 Essential (primary) hypertension; E03.9 Hypothyroidism, unspecified; E11.9 Type 2 diabetes mellitus without complications; F17.210 Nicotine dependence, cigarettes, uncomplicated; Z88.8 Allergy status to other drugs, medicaments and biological substances; Z79.890 Hormone replacement therapy; Z79.4 Long term (current) use of insulin
CPT/HCPCS: 82947; 85049; 85610; 88313; 88307; 36415; 47000; 76942; 96372; J1170

== ENCOUNTER → 2019-09-22 | Outpatient (CLI) | payer BC ==
--- NOTE | 2019-09-22 14:04 | BD ---
EXAMINATION TYPE: Axial Bone Density DATE OF EXAM: 09/22/2019 COMPARISON: NONE CLINICAL HISTORY: 64 YR OLD MALE....ICD-10 CODE: M89.9 DISORDER OF BONE Height: 65 Weight: 242 FRAX RISK QUESTIONS: Secondary Osteoporosis: YES 1. Type 1 Diabetes: YES, LANTIS Current Tobacco Use: ON AND OFF RISK FACTORS HISTORY OF: Family History of Osteoporosis: POSSIBLY Active: WORKING Diet low in dairy products/other sources of calcium: YES, A BIT LOW Hyperparathyroidism: YES, REMOVAL OF THYROID AT AGE 19 Adrenal Insufficiency: NO MEDICATIONS: Thyroid Medications: YES, SYNTHROID, GOITER, AND FULL REMOVAL OF THYROID How Long: SINCE AGE 19 Additional Medications: STATIN FOR CHOLESTEROL, METFORMIN, LANTIS, CALTRATE WITH VIT D3 Additional History: HYPERTENSION, DIABETES, THYROID, EXAM MEASUREMENTS: Bone mineral densitometry was performed using the [employer] System. Bone mineral density as measured about the Lumbar spine is: ----- L1-L4(G/cm2): 1.530 T Score Values are as follows: ----- L1: 3.9 ----- L2: 2.1 ----- L3: 3.0 ----- L4: 2.6 ----- L1-L4: 2.9 Bone mineral density FIRST DEXA SCAN......BASELINE STUDY Bone mineral density about the R hip (g/cm2): 1.360 Bone mineral density about the L hip (g/cm2): 1.380 T Score values are as follows: -----R Neck: 0.5 -----L Neck: 1.0 -----R Total: 2.8 -----L Total: 3.0 Bone mineral density BASELINE STUDY FRAX%s: THERE IS A 3.5% CHANCE FOR A MAJOR OSTEOPOROTIC FX AND 0.2% FOR HIP.......PROBABILITY FOR F X IN 10 YRS TIME IMPRESSION: Normal (Values between +1 and -1 indicate normal bone mass). Consider repeating this study in 5 year s or sooner if there is some new clinical indication. NOTE: T-SCORE=SD OF THE YOUNG ADULT MEAN.
== END | disposition home or self-care (01) ==
LOC: RADBDWWP 13:14
PROVIDERS: ATTEND Family Medicine
DX: M89.9 Disorder of bone, unspecified (principal)
CPT/HCPCS: 77080

== ENCOUNTER → 2024-01-03 | Outpatient (CLI) | payer MEDICARE ==
--- NOTE | 2024-01-03 15:04 | XR ---
EXAMINATION TYPE: XR lumbosacral spine min 4V DATE OF EXAM: 01/03/2024 CLINICAL HISTORY: pain COMPARISON: NONE TECHNIQUE: Frontal, lateral, and oblique images of the lumbar spine are obtained. FINDINGS: There are 5 lumbar type vertebral bodies identified. The lumbar spine shows satisfactory alignment without evidence of acute fracture or dislocation. Vertebral body heights are within normal limits. Mild multilevel degenerative disc space narrowing and spondylosis. Mild facet joint arthropa thy. The overlying soft tissue appears unremarkable. IMPRESSION: No acute fracture or dislocation is seen in the lumbar spine.ICD 10 NO FRACTURE, INITIAL EVALUATION
--- NOTE | 2024-01-03 15:05 | XR ---
EXAMINATION TYPE: XR thoracic spine complete DATE OF EXAM: 01/03/2024 CLINICAL HISTORY: pain TECHNIQUE: Frontal, lateral, and swimmer's view of thoracic spine are obtained. COMPARISON: None. FINDINGS: Thoracic spine show satisfactory alignment without evidence of acute fracture or dislocatio n. Vertebral body heights are preserved. Moderate to severe degenerative disc space narrowing with l arge anterior flowing osteophytes felt to reflect DISH. Visualized ribs are unremarkable. IMPRESSION: No acute fracture or dislocation is seen in the thoracic spine. ICD 10 NO FRACTURE, INIT IAL EVALUATION
== END | disposition home or self-care (01) ==
LOC: RADXRYALE 13:56
PROVIDERS: ATTEND Physician Assistant
DX: S39.92XA Unspecified injury of lower back, initial encounter (principal); X58.XXXA Exposure to other specified factors, initial encounter
CPT/HCPCS: 72072; 72110